=== PATIENT | female | born 1970 | race Caucasian/White ===

== ENCOUNTER 2017-10-12 18:01 | Emergency (ER) | payer OTHER ==
[~2017-10-12] VITALS: Ht 167.6 cm; Wt 100.1 kg
[~2017-10-12 18:01] MED LIST: ADAL40KI INJ; ARMOUR THYROID PO; AZIT-60 PO; B-COTAB18 PO; BUSP-8 PO; CHOL100010 PO; CYCL0.052 OPB; CYM60 PO; ESTR0.3T PO; FLV1 PO; LAMO200T35 PO; LISD70CA PO; MTH25 SQ; NSNN50; ONDA4TAB4 PO; PRM/45 PO; PROM12.57 PO; RIZA10TA18 PO; VERA180T33 PO
[2017-10-12 18:05] VITALS: TEMP 36.5; Ht 167.6 cm; Wt 100.1 kg
[2017-10-12] MEDS ORDERED: SODIUM CHLORIDE 0.9% 1000ML 1,000 ML IV STA (18:24)
--- NOTE | 2017-10-12 18:34 | EMERGENCY ROOM VISIT NOTE ---
History Report prepared by Adam: Capo Garcia Under the Supervision of: Dr. Stan Julian M.D. First contact with patient: 18:11 Chief Complaint: ILLNESS Stated Complaint: SWEATING, MUSCLE WEAKNESS, NAUSEA History of Present Illness The patient is a 47 year old female who presents to the Emergency Room with complaints of persistent diaphoresis that began around 2 months ago. Over this time, she had her Mirena IUD removed that had been in place for 5 years. She has had two menstrual cycles since with her most recent one being today. Along with this, she had began to ween off of her medications to try to live off of all medications. She has also been trying to get ride of her Thrush. The medications that were weened off include Cymbalta, Methotrexate, Humira, and Tofacitinib. She had been taking Premerin for many years, but stopped taking it two months ago. She notes that she has a history of migraines and finished a course of Prednisone 3 days ago. Her symptoms over these two months include diaphoresis, muscle weakness, generalized body pains, and nausea that have worsened in the last couple of days. She denies any fevers, chills, cough, shortness of breath, vomiting, or abnormal urinary symptoms. She also has a history of gastroparesis. She denies any history of diabetes. Source of History: patient Onset: 2 months Position: other (Global) Symptom Intensity: moderate Quality: other (Diaphoresis) Timing: worsening Associated Symptoms: + nausea, No fevers, No chills, No SOB, No vomiting, No urinary symptoms Note: She is having generalized muscle aches and weakness. Review of Systems See HPI for pertinent positives and negatives. A total of ten systems were reviewed and were otherwise negative. Past Medical & Surgical Medical Problems: (1) Anxiety (2) Cerebral aneurysm (3) Chronic Sinusitis Nos (4) Fibromyalgia (5) Migraine (6) LEXIE (obstructive sleep apnea) (7) Tricuspid Valve Disease Family History Autoimmune disorder Diabetes mellitus FH: COPD (chronic obstructive pulmonary disease) Hemiplegic migraines Social History Smoking Status: Former Smoker Drug Use: none Marital Status: Housing Status: lives with family Occupation Status: unemployed Current/Historical Medications Scheduled B-Complex Vitamins (Vitamin B Complex), 1 TAB PO QAM Cholecalciferol (D 1999), 1 TAB PO DAILY Cyclosporine (Ophth) (Restasis), 1 DROP OPB BID Duloxetine HCl (Duloxetine HCl), 90 MG PO on hold Folic Acid (Folic Acid), 1 MG PO QAM Lisdexamfetamine Dimesylate (Vyvanse), 50 MG PO QAM Methylprednisolone (Methylprednisolone), 4 MG PO DAILY Mometasone Furoate (Nasal) (Mometasone Furoate), 1 SPRAY JUDITH DAILY Propranolol HCl (Propranolol HCl ER), 60 MG PO HS Ropinirole HCl (Ropinirole HCl), 0.25 MG PO DAILY Sumatriptan Succinate (Imitrex), 100 MG PO PRN [[place] Thyroid], 60 MG PO QAM Scheduled PRN Ibuprofen-Famotidine (Duexis), 1 TAB PO TID PRN for Ondansetron (Ondansetron HCl), 4 MG PO Q6 PRN for Nausea or Vomiting [Dextroamp-Amphet], 15 MG PO DAILY PRN for Allergies Coded Allergies: Gabapentin (Verified Allergy, Intermediate, HIVES, 07/01/15) Sulfa Drugs (Verified Allergy, Unknown, 07/01/15) Physical Exam Vital Signs Date Time Temp Pulse Resp B/P (MAP) Pulse Ox O2 Delivery O2 Flow Rate FiO2 10/12/17 20:38 75 18 109/87 98 10/12/17 18:05 36.5 87 16 114/70 97 Room Air Physical Exam GENERAL: Awake, alert, anxious-appearing, in no distress HENT: Normocephalic, atraumatic. Oropharynx reveals dry mucous membranes. EYES: Normal conjunctiva. Sclera non-icteric. NECK: Supple. No nuchal rigidity. FROM. No JVD. RESPIRATORY: Clear to auscultation. CARDIAC: Regular rate, normal rhythm. Extremities warm and well perfused. Pulses equal. ABDOMEN: Soft, non-distended. No tenderness to palpation. No rebound or guarding. No masses. RECTAL: Deferred. MUSCULOSKELETAL: Chest examination reveals no tenderness. The back is symmetrical on inspection without obvious abnormality. There is no CVA tenderness to palpation. No joint edema. LOWER EXTREMITIES: Calves are equal size bilaterally and non-tender. No edema. No discoloration. NEURO: Normal sensorium. No sensory or motor deficits noted. SKIN: No rash or jaundice noted. Medical Decision & Procedures Laboratory Results 10/12/17 18:45 Red Blood Count 5.15, Mean Corpuscular Volume 92.8, Mean Corpuscular Hemoglobin 31.3, Mean Corpuscular Hemoglobin Concent 33.7, Mean Platelet Volume 11.2 10/12/17 18:45 Test 10/12/17 18:38 10/12/17 18:45 Urine Color YELLOW Urine Appearance CLOUDY (CLEAR) Urine pH 7.0 (4.5-7.5) Urine Specific [place] 1.012 (1.000-1.030) Urine Protein NEG (NEG) Urine Glucose (UA) NEG (NEG) Urine Ketones NEG (NEG) Urine Occult Blood NEG (NEG) Urine Nitrite NEG (NEG) Urine Bilirubin NEG (NEG) Urine Urobilinogen NEG (NEG) Urine Leukocyte Esterase NEG (NEG) Urine WBC (Auto) 0 /hpf (0-5) Urine RBC (Auto) 0-4 /hpf (0-4) Urine Hyaline Casts (Auto) 0 /lpf (0-5) Urine Epithelial Cells (Auto) 10-20 /lpf (0-5) Urine Bacteria (Auto) NEG (NEG) Urine Test NEG (NEG) White Blood Count 11.58 K/uL (4.8-10.8) Red Blood Count 5.15 M/uL (4.2-5.4) Hemoglobin 16.1 g/dL (12.0-16.0) Hematocrit 47.8 % (37-47) Mean Corpuscular Volume 92.8 fL (80-100) Mean Corpuscular Hemoglobin 31.3 pg (25-34) Mean Corpuscular Hemoglobin Concent 33.7 g/dl (32-36) Platelet Count 316 K/uL (130-400) Mean Platelet Volume 11.2 fL (7.4-10.4) RDW Standard Deviation 44.4 fL (36.4-46.3) RDW Coefficient of Variation 13.1 % (11.5-14.5) Nucleated RBC Absolute Count (auto) 0.02 K/uL (0-0) Neutrophils % (Manual) 61.1 % Lymphocytes % (Manual) 27.6 % Monocytes % (Manual) 5.2 % Eosinophils % (Manual) 1.7 % Basophils % (Manual) 0.9 % Metamyelocytes % 0.9 % Myelocytes % 2.6 % Nucleated Red Blood Cells % 0.2 % Neutrophils # (Manual) 7.08 K/uL (1.4-6.5) Total Absolute Neutrophils 7.08 K/uL (1.4-6.5) Lymphocytes # (Manual) 3.20 K/uL (1.2-3.4) Total Absolute Lymphocytes 3.20 K/uL (1.2-3.4) Monocytes # (Manual) 0.60 K/uL (0.11-0.59) Eosinophils # (Manual) 0.20 K/uL (0-0.5) Basophils # (Manual) 0.10 K/uL (0-0.2) Metamyelocytes # 0.10 K/uL (0-0) Myelocytes # 0.30 K/uL (0-0) Red Blood Cell Morphology Unremarkable Anion Gap 4.0 mmol/L (3-11) Est Creatinine Clear Calc Drug Dose 78.2 ml/min Estimated GFR () 72.7 Estimated GFR (Non- 62.8 BUN/Creatinine Ratio 16.4 (10-20) Calcium Level 10.0 mg/dl (8.5-10.1) Total Bilirubin 0.3 mg/dl (0.2-1) Direct Bilirubin < 0.1 mg/dl (0-0.2) Aspartate Amino Transf (AST/SGOT) 18 U/L (15-37) Alanine Aminotransferase (ALT/SGPT) 32 U/L (12-78) Alkaline Phosphatase 105 U/L (45-117) Total Protein 8.3 gm/dl (6.4-8.2) Albumin 4.3 gm/dl (3.4-5.0) Laboratory results reviewed by me Medications Administered Medications (Trade) Dose Ordered Sig/Minerva Route Start Time Stop Time Status Last Admin Dose Admin Sodium Chloride 1,000 ml @ 999 mls/hr Q1H1M STAT IV 10/12/17 18:24 10/12/17 19:24 DC 10/12/17 19:01 999 MLS/HR ED Course 1810: The patient was evaluated in room C11B. A complete history and physical exam was performed. 1943: The patient had her arm bent so she never received her fluids. 2037: I reevaluated the patient. Discussed results and discharge instructions: She verbalized understanding and agreement. The patient is ready for discharge. Medical Decision I reviewed the patient's past medical history, medications, and the nursing notes as described above. Differential diagnosis includes but is not limited to: dehydration, electrolyte abnormalities, UTI, perimenopausal, and medication withdrawal. The patient is a 47 y/o woman with pmhx of anxiety and depression, RA who presents to the emergency department with complaints of fatigue and sweats over the past month per hPI. On arrival the patient is anxious appearing but in NAD, AFVSS. Clinically dry appearing with dry MM. Sodium 133 and wbc 11 with labs otherwise unremarkable. Sx possible due to mild dehydration in the setting of recent medication changes as well as recently resume her menstrual cycle after 10+ years of having a Merena IUD. Patient has pcp appointment tomorrow. Given 1 month of sx unlikely to have emergent process at this time. Findings and plan for follow-up reviewed with patient. Patient agreeable and d/c'd per discharge instructions. Medication Reconcilliation Current Medication List: was personally reviewed by me Blood Pressure Screening Patient's blood pressure: Normal blood pressure Blood pressure disposition: Did not require urgent referral Impression Primary Impression: Dehydration Scribe Attestation The scribe's documentation has been prepared under my direction and personally reviewed by me in its entirety. I confirm that the note above accurately reflects all work, treatment, procedures, and medical decision making performed by me. Departure Information Dispostion Home / Self-Care Referrals Asif Altamirano Jr,D.O. (PCP) Forms HOME CARE DOCUMENTATION FORM, IMPORTANT VISIT INFORMATION, WORK / SCHOOL INSTRUCTIONS Patient Instructions ED Dehydration, My [facility] Additional Instructions Please follow up with your primary care physician in the next 1-3 days for re- evaluation. The cause of your symptoms are unclear at this time but may be due to mild dehydration or possibly related to being off her medications. Otherwise, your exam and lab results did not show signs of an emergent condition at this time. Drink plenty of fluids. Return to the emergency department for worsening symptoms as described in the accompanying instructions.
[2017-10-12 19:01] LABS: HEMATOCRIT 47.8 % (37-47); MEAN CELL VOLUME 92.8 fL (80-100); MEAN CORPUSCULAR HEMOGLOBIN 31.3 pg (25-34); MEAN CORPUSCULAR HGB CONC 33.7 g/dl (32-36); MEAN PLATELET VOLUME 11.2 fL (7.4-10.4); PLATELET COUNT 316 K/uL (130-400); RED BLOOD COUNT 5.15 M/uL (4.2-5.4); WHITE BLOOD COUNT 11.58 K/uL (4.8-10.8)
[2017-10-12 19:03] LABS: URINE APPEARANCE CLOUDY (CLEAR); URINE BILIRUBIN NEG (NEG); URINE COLOR YELLOW; URINE NITRITE NEG (NEG); URINE SPECIFIC GRAVITY 1.012 (1.000-1.030); UROBILINOGEN NEG (NEG); ZZUR CULT IF INDIC CLEAN CATCH NO
[2017-10-12 19:08] LABS: MANUAL MICROSCOPIC REQUIRED? NO; REVIEW REQ? NO
[2017-10-12 19:18] LABS: ALT/SGPT 32 U/L (12-78); AST/SGOT 18 U/L (15-37); BLOOD UREA NITROGEN 17 mg/dl (7-18); BUN/CREATININE RATIO 16.4 (10-20); CARBON DIOXIDE 31 mmol/L (21-32); CHLORIDE 98 mmol/L (98-107); CREATININE 1.05 mg/dl (0.60-1.20); GLUCOSE 90 mg/dl (70-99); POTASSIUM 4.1 mmol/L (3.5-5.1); SODIUM 133 mmol/L (136-145)
[2017-10-12 19:20] LABS: ALKALINE PHOSPHATASE 105 U/L (45-117)
[2017-10-12] MEDS ORDERED: RQP25 PO (19:33)
[2017-10-12] MEDS ORDERED: TOFA1TAB PO (19:33)
[2017-10-12] MEDS ORDERED: PROP60CA PO (19:33)
[2017-10-12] MEDS ORDERED: DEXTROAMP-AMPHET PO (19:33)
[2017-10-12] MEDS ORDERED: MDR4 PO (19:33)
[2017-10-12] MEDS ORDERED: LISD50CA4 PO (19:33)
[2017-10-12] MEDS ORDERED: CYM30 PO (19:33)
[2017-10-12] MEDS ORDERED: IBUP1TAB51 PO (19:33)
[2017-10-12 19:37] LABS: BASOPHIL % 0.9 %; COMPLETE YES; EOSINOPHIL % 1.7 %; LYMPHOCYTE % 27.6 %; METAMYELOCYTE % 0.9 %; MYELOCYTE % 2.6 %; NEUTROPHILS % 61.1 %
[2017-10-12] MEDS ORDERED: SUMA100T16 PO (19:45)
[2017-10-12] MEDS ORDERED: MOME6000 NAE (19:48)
[2017-10-12] MEDS ORDERED: ZFR4 PO (19:48)
[2017-10-12] MEDS ORDERED: CHOL1TAB76 PO (19:48)
[2017-10-12 20:38] VITALS: BP 109/87; PULSE 75; O2SAT 98
== END 2017-10-12 20:35 | disposition home or self-care (01) ==
LOC: C.EDB 18:02 → C.EDC 20:35
DX: E86.0 Dehydration (principal); F41.9 Anxiety disorder, unspecified; J32.9 Chronic sinusitis, unspecified; M79.7 Fibromyalgia; G43.909 Migraine, unspecified, not intractable, without status migrainosus; G47.33 Obstructive sleep apnea (adult) (pediatric); Z83.3 Family history of diabetes mellitus; Z83.6 Family history of other diseases of the respiratory system; Z87.891 Personal history of nicotine dependence; Z79.899 Other long term (current) drug therapy

== ENCOUNTER → 2018-05-26 | Outpatient (CLI) | payer OTHER ==
[~2018-05-26] MED LIST changes: -ADAL40KI INJ; -AZIT-60 PO; -BUSP-8 PO; -CHOL100010 PO; +CHOL1TAB76 PO; +CYM30 PO; -CYM60 PO; +DEXTROAMP-AMPHET PO; -ESTR0.3T PO; +IBUP1TAB51 PO; -LAMO200T35 PO; +LISD50CA4 PO; -LISD70CA PO; +MDR4 PO; +MOME6000 NAE; -MTH25 SQ; -NSNN50; -ONDA4TAB4 PO; -PRM/45 PO; -PROM12.57 PO; +PROP60CA PO; -RIZA10TA18 PO; +RQP25 PO; +SUMA100T16 PO; -VERA180T33 PO; +ZFR4 PO
--- NOTE | 2018-05-26 13:21 | DIAGNOSTIC IMAGING REPORT ---
CERVICAL SPINE MRI WITH FLEXION AND EXTENSION HISTORY: VERTIGO/headache, worsening neck pain,HX SYRINX, TECHNIQUE: A 1.5 Apple MRI of the cervical spinal performed without the use of intravenous contrast in neutral, flexion, extension positioning. Axial and sagittal T2 sequences were obtained. COMPARISON STUDY: None. FINDINGS: Straightening of the cervical spine. Alignment remains intact throughout flexion and extension. Prevertebral soft tissues and the C1-C2 interval are intact. There is a posterior fossa is unremarkable. Mild disc space narrowing at C5-C6 and C6-C7. The cervical spinal cord is normal in course, caliber, and signal intensity. C2-C3: No significant central canal or neural foraminal narrowing. C3-C4: No significant central canal or neural foraminal narrowing. C4-C5: No significant central canal or neural foraminal narrowing. C5-C6: Small broad-based posterior disc osteophyte complex resulting in slight effacement of the anterior thecal sac with minimal central canal narrowing. No neural foraminal narrowing. C6-C7: Small broad-based posterior disc osteophyte complex resulting in slight effacement of the anterior thecal sac without cord deformity. This results in minimal central canal narrowing. No significant neural foraminal narrowing. C7-T1: No significant central canal or neural foraminal narrowing. Normal CSF flow study. No evidence for Chiari malformation. IMPRESSION: 1. The alignment remains intact throughout flexion and extension. 2. Straightening of the cervical spine. 3. Mild degenerative disc disease at C5-C6 and C6-C7 as described above. 4. Normal CSF flow study. Electronically signed by: Cezar Mccoy M.D. 05/26/2018 1:20 PM Dictated Date/Time: 05/26/2018 12:57 PM
== END | disposition home or self-care (01) ==
LOC: C.MRIBC 10:53
DX: H81.49 Vertigo of central origin, unspecified ear (principal)

== ENCOUNTER 2023-03-20 21:12 | Inpatient (IN) ==
[2023-03-20] MEDS ORDERED: SODIUM CHLORIDE 0.9% 1000ML 1,000 ML IV STA (21:40)
[2023-03-20] MEDS ORDERED: ONDANSETRON INJ 2 MG/ML 2 ML VIAL IV STA (21:40)
[2023-03-20] MEDS ORDERED: MoRPHine SULFATE 4 MG/ML 1 ML CARP\\VIAL IV STA (21:40)
[2023-03-20 22:02] LABS: Basophils # (auto) 0.05 K/uL (0-0.2); Basophils % (auto) 0.5 %; Eosinophils # (auto) 0.12 K/uL (0-0.50); Eosinophils % (auto) 1.2 %; Hemoglobin 13.7 g/dl (12.0-16.0); Immature Granulocytes # (auto) 0.05 K/uL (0.01-0.20); Immature Granulocytes % (auto) 0.5 %; Lymphocytes % (auto) 25.1 %; Mean Corpuscular Hemoglobin 30.8 pg (25.0-34.0); Mean Corpuscular Hgb Conc 33.4 g/dL (32.0-36.0); Mean Corpuscular Volume 92.1 fL (80.0-100.0); Mean Platelet Volume 10.8 fL (9.4-12.4); Monocytes # (auto) 0.93 K/uL (0.11-0.59); Neutrophils % (auto) 63.7 %; Platelet Count 253 K/uL (130-400); RDW Coefficient of Variation 12.9 % (11.5-14.5); RDW Standard Deviation 43.4 fL (36.4-46.3); Red Blood Count 4.45 M/uL (4.20-5.40); White Blood Count 10.35 K/ul (4.8-10.8)
[2023-03-20 22:08] LABS: Appearance Urine Clear (Clear); Bilirubin Urine Negative (Negative); Blood Urine Negative (Negative); Color Urine Yellow; Glucose Urine UA Negative (Negative); Ketones Urine Negative (Negative); Leukocyte Esterase Urine Negative (Negative); Nitrite Urine Negative (Negative); Protein Urine Negative (Negative); Specific Gravity Urine 1.011 (1.000-1.030); Urobilinogen Urine Negative (Negative)
[2023-03-20 22:25] LABS: Albumin Globulin Ratio 1.5 (0.9-2); Albumin Level 4.3 gm/dl (3.4-5.0); BUN Creatinine Ratio 18.4 (10-20); Bilirubin,Total 0.3 mg/dl (0.2-1.0); Calcium 8.8 mg/dl (8.6-10.3); Creatinine Clr Calc Pharmacy 86.7 ml/min; Est GFR (African American) 88.2 ml/min; Est GFR (Non-African American) 76.1 ml/min; Globulin 2.8 gm/dl (2.5-4.0); Total Protein 7.1 gm/dl (6.0-8.3)
[2023-03-20 22:32] LABS: Troponin I High Sensitivity 2.8 pg/ml (0-14)
[2023-03-20 22:36] LABS: Pregnancy Test, Serum Negative (Negative)
--- NOTE | 2023-03-20 22:36 | Emergency Department Note ---
History of Present Illness General Chief complaint: Flank Pain Stated complaint: FLANK PAIN Time Seen by Provider: 03/20/23 21:30 History of Present Illness Maximum Pain Intensity: 6 This 52-year-old female presents to the ER complaining of right upper quadrant complaining of abdominal pain for the past few days steadily getting worse. Nothing makes it better. Patient denies chest pain, dyspnea, vomiting, diarrhea, flulike illness. She had endometriosis scrapings but no other abdom inal surgeries. Home Medications Medication Instructions Recorded Confirmed Type cholecalciferol (vitamin D3) 50 2,000 unit PO DAILY 08/11/18 03/20/23 History mcg (2,000 unit) tablet folic acid 1 mg tablet 1 mg PO DAILY 08/11/18 03/20/23 History thyroid (pork) 60 mg tablet 60 mg PO DAILY 08/11/18 03/20/23 History ([place] Thyroid) fremanezumab-vfrm 225 mg/1.5 mL 225 mg subcut .[id number] 02/17/21 03/20/23 Hist ory subcutaneous syringe (Ajovy Syringe) estradiol 0.05 mg-norethindrone 1 patch transdermal 2XWK 03/20/23 03/20/23 History 0.14 mg/24 hr semiwkly transderm patch (CombiPatch) lamotrigine 25 mg tablet 0 mg PO DIRECTED 03/20/23 03/20/23 History lorazepam 0.5 mg tablet 0.5 mg PO TID PRN Anxiety 03/20/23 03/20/23 History omeprazole 40 mg capsule,delayed 40 mg PO QAM 03/20/23 03/20/23 History release oxybutynin chloride 15 mg 15 mg PO QAM 03/20/23 03/20/23 History tablet,extended release 24 hr rimegepant 75 mg disintegrating 75 mg PO DIRECTED PRN Migraine 03/20/23 03/20/23 History tablet (Nurtec ODT) Headache tizanidine 4 mg tablet 4 mg PO HS 03/20/23 03/20/23 History tramadol 50 mg tablet 50 mg PO HS PRN RESTLESS LEGS 03/20/23 03/20/23 History Allergies Allergy/AdvReac Type Severity Reaction Status Date / Time amoxicillin Allergy Intermediate ITCHING Verified 03/20/23 22:41 azithromycin Allergy Intermediate itching Verified 03/20/23 22:41 [From Zithromax Z-Owen] gabapentin Allergy Intermediate HIVES Verified 03/20/23 22:41 Sulfa (Sulfonamide Allergy Intermediate Rash Verified 03/20/23 22:41 Antibiotics) Past Med/Surg History Medical History Anxiety Cerebral aneurysm Cervical facet joint syndrome Cervicalgia Chronic left shoulder pain Diffuse myofascial pain syndrome Fibromyalgia Migraine Myofascial pain LEXIE (obstructive sleep apnea) Social History Smoking Status: Former smoker Hx Alcohol Use: No Hx Substance Use: No Preferred Language: [place] Communication Ability: Effective Visual Impairment: No Limitations Hearing Ability: Normal Airport Tower Controller Required: No Beliefs That Will Affect Care: None marital status: Current Living Situation: Spouse current occupational status: retired Feels Safe at Home: Yes Assistive Devices: None Review of Systems A total of 10 systems reviewed and were otherwise negative Physical Exam Vital Signs Vital Signs - 24 hr 03/20/23 21:24 03/20/23 21:55 03/20/23 22:48 Temperature 37 C Temperature Source Temporal Artery Scan Pulse Rate 88 Pulse Rate [Apical] 86 Respiratory Rate 20 18 Respiratory Effort / Characteristics Non-Labored Spontaneous Respiratory Depth Normal Blood Pressure 138/81 Blood Pressure [Left Arm] 126/73 Blood Pressure Mean 100 Blood Pressure Mean [Left Arm] 90 Pulse Oximetry 96 100 96 Oxygen Delivery Method Room Air Room Air Room Air Sepsis Recent Fever Within 48 Hours No Sepsis New/Unexplained Change in Mental Status N/A Sepsis Action Taken by Nursing No Action Required VITALS: Vitals are noted on the nurse's note and reviewed by myself. Vital signs stable. GENERAL: Pleasant female, in no acute distress, nondiaphoretic, well-developed well-nourished. SKIN: The skin was without rashes, erythema, edema, or bruising. There is no tenting of the skin. Capillary reflex less than 2 seconds. HEAD: Normocephalic atraumatic. EARS: External auditory canals clear, EYES: Pupils equal round and reactive to light and accommodation. Conjunctivae without injection, sclerae without icterus. Extraocular movements intact. NOSE: Patent, turbinates without inflammation or discharge. MOUTH: Mucous membranes moist. Pharynx without erythema or exudate. Uvula midline. Airway patent. Tongue does not deviate. NECK: Supple without nuchal rigidity. No lymphadenopathy. No thyromegaly. Cervical spine is nontender. No JVD. HEART: Regular rate and rhythm LUNGS: Clear to auscultation bilaterally without wheezes, rales or rhonchi. No retractions or accessory muscle use. ABDOMEN: Positive bowel sounds x 4. Normal tympanic percussion. Soft, tender right upper quadrant, without masses or organomegaly. No guarding or rebound tenderness. No CVA tenderness MUSCULOSKELETAL: No muscle atrophy, erythema, or edema noted. NEURO: Patient was alert and oriented to person place and time. Normal sensation to light and sharp touch. No focal neurological deficits. Course Administered Medications Dextrose/Lactated Ringer's (D5w And Lactated Ringers) 1,000 mls @ 75 mls/hr IV .[id number] ONE Stop: 03/21/23 13:00 Last Admin: 03/21/23 00:42 Dose: 75 mls/hr Documented By: ADAM Discontinued Medications Sodium Chloride (Nss 1000ml) 1,000 mls @ 999 mls/hr IV .[id number] STA Stop: 03/20/23 22:40 Last Infusion: 03/20/23 22:46 Dose: 0 mls/hr Documented By: Admin: 03/20/23 21:45 Dose: 999 mls/hr Documented By: LOIS Cefoxitin Sodium (Mefoxin) 2,000 mg in 60 mls @ 100 mls/hr IV NOW STA Stop: 03/20/23 23:37 Last Infusion: 03/21/23 00:25 Dose: 0 mls/hr Documented By: Admin: 03/20/23 23:49 Dose: 100 mls/hr Documented By: ADAM Acetaminophen (Ofirmev) 1,000 mg in 100 mls @ 400 mls/hr IV NOW STA Stop: 03/20/23 23:23 Last Infusion: 03/20/23 23:29 Dose: 0 mls/hr Documented By: Admin: 03/20/23 23:14 Dose: 400 mls/hr Documented By: ADAM Ketorolac Tromethamine (Ketorolac Tromethamine 15 Mg/Ml Vial) 15 mg IV NOW ONE Stop: 03/20/23 23:58 Last Admin: 03/21/23 00:03 Dose: 15 mg Documented By: ADAM Morphine Sulfate (Morphine Sulfate 4 Mg/Ml 1 Ml Carp\Vial) 4 mg IV NOW STA Stop: 03/20/23 21:41 Last Admin: 03/20/23 21:45 Dose: 4 mg Documented By: Ondansetron HCl (Ondansetron Inj 2 Mg/Ml 2 Ml Vial) 4 mg IV NOW STA Stop: 03/20/23 21:41 Last Admin: 03/20/23 21:45 Dose: 4 mg Documented By: Medical Decision Making Medical Records Attestation: I reviewed the patient's medical records. Home Medications Current Medication List: was personally reviewed by me Laboratory Data Attestation: I reviewed the patient's lab results. 03/20/23 21:47 03/20/23 21:47 Lab Results 03/20/23 03/20/23 03/20/23 Range/Units 21:40 21:47 21:47 WBC 10.35 (4.8-10.8) K/ul RBC 4.45 (4.20-5.40) M/uL Hgb 13.7 (12.0-16.0) g/dl Hct 41.0 (37.0-47.0) % MCV 92.1 (80.0-100.0) fL MCH 30.8 (25.0-34.0) pg MCHC 33.4 (32.0-36.0) g/dL RDW Std Deviation 43.4 (36.4-46.3) fL RDW Coeff of Eunice 12.9 (11.5-14.5) % Plt Count 253 (130-400) K/uL MPV 10.8 (9.4-12.4) fL Immature Gran % (Auto) 0.5 % Neut % (Auto) 63.7 % Lymph % (Auto) 25.1 % [place] % (Auto) 9.0 % Eos % (Auto) 1.2 % Baso % (Auto) 0.5 % Neut # (Auto) 6.60 H (1.40-6.50) K/uL Lymph # (Auto) 2.60 (1.2-3.4) K/uL [place] # (Auto) 0.93 H (0.11-0.59) K/uL Eos # (Auto) 0.12 (0-0.50) K/uL Baso # (Auto) 0.05 (0-0.2) K/uL Immature Gran # (Auto) 0.05 (0.01-0.20) K/uL Sodium 138 (136-145) mmol/L Potassium 4.0 (3.5-5.1) mmol/L Chloride 102 (98-107) mmol/L Carbon Dioxide 28 (21-32) mmol/L Anion Gap 8 (3-11) BUN 16 (6-23) mg/dl Creatinine 0.87 (0.6-1.2) mg/dl Est Cr Clr Drug Dosing 86.7 ml/min Est GFR ( Amer) 88.2 ml/min Est GFR (Non-Af Amer) 76.1 ml/min BUN/Creatinine Ratio 18.4 (10-20) Glucose 91 (70-99(Fasting)) mg/dl Calcium 8.8 (8.6-10.3) mg/dl Total Bilirubin 0.3 (0.2-1.0) mg/dl AST 14 (13-39) U/L ALT 9 (7-52) U/L Alkaline Phosphatase 65 (34-104) U/L Troponin I High Sens 2.8 (0-14) pg/ml Total Protein 7.1 (6.0-8.3) gm/dl Albumin 4.3 (3.4-5.0) gm/dl Globulin 2.8 (2.5-4.0) gm/dl Albumin/Globulin Ratio 1.5 (0.9-2) Lipase 40 (11-82) U/L HCG, Qual (Negative) Urine Color Yellow Urine Appearance Clear (Clear) Urine pH 7.0 (4.5-7.5) Ur Specific [place] 1.011 (1.000-1.030) Urine Protein Negative (Negative) Urine Glucose (UA) Negative (Negative) Urine Ketones Negative (Negative) Urine Blood Negative (Negative) Urine Nitrite Negative (Negative) Urine Bilirubin Negative (Negative) Urine Urobilinogen Negative (Negative) Ur Leukocyte Esterase Negative (Negative) SARS-CoV-2, RNA, NAAT (NEGATIVE) 03/20/23 03/20/23 Range/Units 21:47 23:09 WBC (4.8-10.8) K/ul RBC (4.20-5.40) M/uL Hgb (12.0-16.0) g/dl Hct (37.0-47.0) % MCV (80.0-100.0) fL MCH (25.0-34.0) pg MCHC (32.0-36.0) g/dL RDW Std Deviation (36.4-46.3) fL RDW Coeff of Eunice (11.5-14.5) % Plt Count (130-400) K/uL MPV (9.4-12.4) fL Immature Gran % (Auto) % Neut % (Auto) % Lymph % (Auto) % [place] % (Auto) % Eos % (Auto) % Baso % (Auto) % Neut # (Auto) (1.40-6.50) K/uL Lymph # (Auto) (1.2-3.4) K/uL [place] # (Auto) (0.11-0.59) K/uL Eos # (Auto) (0-0.50) K/uL Baso # (Auto) (0-0.2) K/uL Immature Gran # (Auto) (0.01-0.20) K/uL Sodium (136-145) mmol/L Potassium (3.5-5.1) mmol/L Chloride (98-107) mmol/L Carbon Dioxide (21-32) mmol/L Anion Gap (3-11) BUN (6-23) mg/dl Creatinine (0.6-1.2) mg/dl Est Cr Clr Drug Dosing ml/min Est GFR ( Amer) ml/min Est GFR (Non-Af Amer) ml/min BUN/Creatinine Ratio (10-20) Glucose (70-99(Fasting)) mg/dl Calcium (8.6-10.3) mg/dl Total Bilirubin (0.2-1.0) mg/dl AST (13-39) U/L ALT (7-52) U/L Alkaline Phosphatase (34-104) U/L Troponin I High Sens (0-14) pg/ml Total Protein (6.0-8.3) gm/dl Albumin (3.4-5.0) gm/dl Globulin (2.5-4.0) gm/dl Albumin/Globulin Ratio (0.9-2) Lipase (11-82) U/L HCG, Qual Negative (Negative) Urine Color Urine Appearance (Clear) Urine pH (4.5-7.5) Ur Specific [place] (1.000-1.030) Urine Protein (Negative) Urine Glucose (UA) (Negative) Urine Ketones (Negative) Urine Blood (Negative) Urine Nitrite (Negative) Urine Bilirubin (Negative) Urine Urobilinogen (Negative) Ur Leukocyte Esterase (Negative) SARS-CoV-2, RNA, NAAT NEGATIVE (NEGATIVE) Imaging Data Attestation: I personally reviewed and interpreted this imaging study as follows: Radiologist's Impression: Gallbladder Ultrasound 03/20/23 21:40 Exam(s): US GALLBLADDER EXAM: US Abdomen Limited, Gallbladder CLINICAL HISTORY: Reason for exam: ruq pain. TECHNIQUE: Real-time ultrasound of the right upper quadrant with image documentation. COMPARISON: 09/29/2018. FINDINGS: Limitations: Exam is limited due to gas artifact in the bowel. Liver: The liver measures 16.5 cm. Gallbladder: Ruiz sign could not be assessed due to prior administration of medication. The gallbladder wall measures 1.9 mm. Normal distention of the gallbladder with a stone measuring 1.5 x 1.7 x 1. 4 cm. Common bile duct: The common bile duct measures 3 mm. No stones. No dilation. Pancreas: Unremarkable as visualized. Right kidney: The right kidney measures 11.5 cm. IMPRESSION: 1. Gallstone measuring maximum 1.7 cm with no distinct signs of acute cholecystitis. 2. Remainder of the right upper quadrant ultrasound unremarkable. Electronically signed by: Sara Marsh MD 03/20/23 22:52 PM [facility] Narrative Prior records/ancillary studies reviewed. Triage Nursing notes reviewed. Additional history obtained from family. The patient's history was concerning for abdominal pain. Differential diagnosis: Etiologies such as appendicitis, diverticulitis, PUD, biliary pathology, UTI, pancreatitis, obstruction, mesenteric ischemia, aortic pathology, infections, inflammatory bowel disease, renal colic, as well as others were entertained. Physical examination findings: As above. ER treatment provided: An order was placed for continuous cardiac monitoring. The monitor shows a rate of 60-100 with a sinus rhythm per my Independent interpretation. Morphine Zofran IV fluids were ordered On reassessment the patient felt better. Diagnostics interpreted by me: ECG: Ordered for upper abdominal pain EKG: Normal sinus, normal intervals, no acute ST-T wave changes. Impression normal sinus rhythm independently interpreted by myself I think arrhythmia is unlikely. EKG shows normal sinus rhythm with no interval abnormalities such as QT prolongation or WPW. There are no findings to suggest Brugada syndrome. Cardiac monitoring in the emergency department reveals no tachycardic or bradycardic dysrhythmia. Hypertrophic cardiomyopathy was considered but there are no clear historical elements pointing toward this. EKG is not suggestive. The QRS voltage is not extremely large and there are no suggestive Q waves. The labs Independently Interpreted by myself revealed normal lipase, no worrisome leukocytosis, negative hCG Imaging studies: Ultrasound was read by stat radiology and reviewed by myself with concerns for cholelithiasis Consultation: A consultation was placed with the surgery. The case was discussed and diagnostics were reviewed. Dr. Stock recommends HIDA scan antibiotics and medicine admission Medicine was consulted and will evaluate the patient for possible admission. Exam and history seem consistent with abdominal pain with concerns for biliary colic. Patient was still moderate amount of pain. Surgery medicine were consulted. The case was discussed. Patient will be admitted to the medical service. HIDA scan was ordered. Patient started antibiotics. She was given pain meds as above. By the evaluation outlined above emergent etiologies such as appendicitis, diverticulitis, PUD, UTI, pancreatitis, obstruction, mesenteric ischemia, aortic pathology, inflammatory bowel disease, renal colic, as well as others were deemed relatively unlikely. The pt informed about the findings as listed above. All questions were answered and pleased with the treatment. The chart was completed utilizing [employer] Speech voice recognition software. Grammatical errors, random word insertions, pronoun errors, and incomplete sentences are an occassional consequence of this system due to software limitations, ambient noise, and hardware issues. Any formal questions or concerns about the content, text, or information contained within the body of this dictation should be directly addressed to the physician assistant store manager trainee for clarification. Impression & Plan Biliary colic, Abdominal pain, acute Discharge Plan Visit Data Chief Complaint: Flank Pain Stated Complaint: FLANK PAIN ED Provider: Олег Gambino ED Midlevel Provider: Evonne Cruz Discharge Problem: Biliary colic, Abdominal pain, acute Patient Disposition: Admitted As Inpatient Condition: Good Forms Stand Alone Forms: [employer] Prescriptions Prescriptions: No Action Ajovy Syringe 225 mg/1.5 mL syringe 225 mg subcut .[id number] Rx Instructions: DUE IN MARCH 2023 folic acid 1 mg Tablet 1 mg PO DAILY cholecalciferol (vitamin D3) 2,000 unit Tablet 2,000 unit PO DAILY [place] Thyroid 60 mg Tablet 60 mg PO DAILY oxybutynin chloride 15 mg tablet extended release 24hr 15 mg PO QAM tizanidine 4 mg tablet 4 mg PO HS Rx Instructions: MAY INCREASE WEEKLY BY 2 MG IF NEEDED TO MAX DOSE OF 8 MG. omeprazole 40 mg capsule,delayed release(DR/EC) 40 mg PO QAM tramadol 50 mg tablet 50 mg PO HS PRN (Reason: RESTLESS LEGS) lamotrigine 25 mg tablet 0 mg PO DIRECTED lorazepam 0.5 mg tablet 0.5 mg PO TID PRN (Reason: Anxiety) CombiPatch 0.05-0.14 mg/24 hr patch semiweekly 1 patch transdermal 2XWK Nurtec ODT 75 mg tablet,disintegrating 75 mg PO DIRECTED PRN (Reason: Migraine Headache) Referrals Referrals: Belle Parekh MD [Primary Care Provider] -
--- NOTE | 2023-03-20 22:53 | Ultrasound Report ---
Exam(s): US GALLBLADDER EXAM: US Abdomen Limited, Gallbladder CLINICAL HISTORY: Reason for exam: ruq pain. TECHNIQUE: Real-time ultrasound of the right upper quadrant with image documentation. COMPARISON: 09/29/2018. FINDINGS: Limitations: Exam is limited due to gas artifact in the bowel. Liver: The liver measures 16.5 cm. Gallbladder: Ruiz sign could not be assessed due to prior administration of medication. The gallbladder wall measures 1.9 mm. Normal distention of the gallbladder with a stone measuring 1.5 x 1.7 x 1. 4 cm. Common bile duct: The common bile duct measures 3 mm. No stones. No dilation. Pancreas: Unremarkable as visualized. Right kidney: The right kidney measures 11.5 cm. IMPRESSION: 1. Gallstone measuring maximum 1.7 cm with no distinct signs of acute cholecystitis. 2. Remainder of the right upper quadrant ultrasound unremarkable. Electronically signed by: Sara Marsh MD 03/20/23 22:52 PM
[2023-03-20] MEDS ORDERED: cefOXitin 2,000 MG/60 ML BAG IV STA (23:02)
[2023-03-20] MEDS ORDERED: ACETAMINOPHEN 1,000 MG/100 ML VIAL IV STA (23:09)
[2023-03-20] MEDS ORDERED: oxyCODONE HCL IR 5 MG TAB (IMMEDIATE RELEASE) PO PRN (23:41)
[2023-03-20] MEDS ORDERED: D5W AND LACTATED RINGERS 1,000 ML IV ONE (23:41)
[2023-03-20] MEDS ORDERED: ACETAMINOPHEN 325 MG TAB PO PRN (23:41)
[2023-03-20] MEDS ORDERED: KETOROLAC TROMETHAMINE 15 MG/ML VIAL IV ONE (23:57)
--- NOTE | 2023-03-21 02:03 | History & Physical Report ---
Date of Service March 21, 2023 Assessment & Plan (1) Biliary colic: Plan: no sepsis for now. hyperlipidemia, not on statin Rx LEXIE status post surgery DM 2 diet controlled, hemoglobin A1c of 5.27 September 2022 hypothyroidism, euthyroid as of recent outpatient TSH hx fibromyalgia/migraine/chronic fatigue syndrome as per records anxiety/mood disorder, at baseline past tobacco abuse. OBS GMF Analgesia General surgery consult Re: Biliary colic (ER provider already in touch with Dr. Stock who recommends HIDA scan to rule out cholecystitis.) N.p.o. until patient seen by General Surgery ISS BG goal 1 10-1 40, update hemoglobin A1c DVT Prophylaxis. SCDs Re: Possible surgery Recommend pharmacologic anticoagulation with Lovenox 40 mg subcutaneous daily once bleeding risk is deemed to be minimal and negligible pending General Surgery evaluation. Full code Patient requesting updates from providers. Mr. Geri Siddiqui, contact #[phone]. Text document was generated using [employer] voice recognition software. It may contain grammatical or spelling errors. Kindly contact undersigned for clarification of any documentation item in question. History of Present Illness Chief Complaint: Abdominal pain Primary Care Provider: Belle Parekh MD History obtained from patient, family, and records. Medical history significant for hyperlipidemia, LEXIE status post surgery, DM 2 diet controlled, hypothyroidism, GERD, fibromyalgia, migraine, chronic fatigue syndrome as per records, anxiety/mood disorder, IgA deficiency as per records, past tobacco abuse. Last confinement December 2014 for intractable headache. Few days history of achy RUQ pain radiating to the right flank with nausea, no vomiting, no fever, no chills. Patient denies chest pain, SOB. Patient brought by to the ER for evaluation. Medical History as above Surgical History : Tarsal tunnel release surgery, uvulopalatopharyngoplasty, breast reduction, sinus surgery, entropion surgery, oophorectomy, hernia repair Family History : Cholelithiasis, breast cancer, DM, autoimmune disease Personal/Social history : Past tobacco abuse, occasional EtOH intake, homemaker Allergies Allergy/AdvReac Type Severity Reaction Status Date / Time amoxicillin Allergy Intermediate ITCHING Verified 03/20/23 22:41 azithromycin Allergy Intermediate itching Verified 03/20/23 22:41 [From Zithromax Z-Owen] gabapentin Allergy Intermediate HIVES Verified 03/20/23 22:41 Sulfa (Sulfonamide Allergy Intermediate Rash Verified 03/20/23 22:41 Antibiotics) Home Medications Medication Instructions Recorded Confirmed Type cholecalciferol (vitamin D3) 50 2,000 unit PO DAILY 08/11/18 03/20/23 History mcg (2,000 unit) tablet folic acid 1 mg tablet 1 mg PO DAILY 08/11/18 03/20/23 History thyroid (pork) 60 mg tablet 60 mg PO DAILY 08/11/18 03/20/23 History ([place] Thyroid) fremanezumab-vfrm 225 mg/1.5 mL 225 mg subcut .[id number] 02/17/21 03/20/23 History subcutaneous syringe (Ajovy Syringe) estradiol 0.05 mg-norethindrone 1 patch transdermal 2XWK 03/20/23 03/20/23 History 0.14 mg/24 hr semiwkly transderm patch (CombiPatch) lamotrigine 25 mg tablet 0 mg PO DIRECTED 03/20/23 03/20/23 History lorazepam 0.5 mg tablet 0.5 mg PO TID PRN Anxiety 03/20/23 03/20/23 History omeprazole 40 mg capsule,delayed 40 mg PO QAM 03/20/23 03/20/23 History release oxybutynin chloride 15 mg 15 mg PO QAM 03/20/23 03/20/23 History tablet,extended release 24 hr rimegepant 75 mg disintegrating 75 mg PO DIRECTED PRN Migraine 03/20/23 03/20/23 History tablet (Nurtec ODT) Headache tizanidine 4 mg tablet 4 mg PO HS 03/20/23 03/20/23 History tramadol 50 mg tablet 50 mg PO HS PRN RESTLESS LEGS 03/20/23 03/20/23 History Past Med/Surg History Medical History Anxiety Cerebral aneurysm Cervical facet joint syndrome Cervicalgia Chronic left shoulder pain Diffuse myofascial pain syndrome Fibromyalgia Migraine Myofascial pain LEXIE (obstructive sleep apnea) Social History Smoking Status: Never smoker Second Hand Exposure: No; Do You Dip or Chew Tobacco: No; Hx Alcohol Use: Yes Alcohol type: beer and hard liquor Hx Substance Use: No Preferred Language: Bel[place]an Communication Ability: Effective Visual Impairment: No Limitations Hearing Ability: Normal 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 Beliefs That Will Affect Care: None marital status: Current Living Situation: Spouse current occupational status: retired Feels Safe at Home: Yes Safety Concerns: Feels Safe At This Time Assistive Devices: None Review of Systems Review of Systems: As per HPI, all other systems reviewed and negative Physical Exam Physical Exam: GENERAL: Comfortable, pleasant, obese, no respiratory distress SKIN: Normal color, warm HEENT: [place] palpebral conjunctivae, no ptosis, dry buccal mucosa NECK : Supple, short neck, no tenderness CHEST : CTA, no tenderness HEART : RRR, no obvious murmurs ABDOMEN: Some distention, right upper quadrant tenderness EXTREMITIES : Minimal LE swelling, no LE tenderness, no other conspicuous deformities noted NEUROLOGIC : Coherent, no facial asymmetry, no other gross focality Results & Data Results & Data Vital Signs (Past 12 Hours) Vital Signs Temp Pulse Pulse Resp BP BP Pulse Ox 03/21/23 01:23 79 16 124/80 97 03/21/23 00:20 80 03/20/23 22:48 86 18 126/73 96 03/20/23 21:55 100 03/20/23 21:24 37 C 88 20 138/81 96 O2 Del Method 03/21/23 01:23 Room Air 03/21/23 00:20 03/20/23 22:48 Room Air 03/20/23 21:55 Room Air 03/20/23 21:24 Room Air Laboratory Results Laboratory Results WBC 10.35 K/ul (4.8-10.8) 03/20/23 21:47 RBC 4.45 M/uL (4.20-5.40) 03/20/23 21:47 Hgb 13.7 g/dl (12.0-16.0) 03/20/23 21:47 Hct 41.0 % (37.0-47.0) 03/20/23 21:47 MCV 92.1 fL (80.0-100.0) 03/20/23 21:47 MCH 30.8 pg (25.0-34.0) 03/20/23 21:47 MCHC 33.4 g/dL (32.0-36.0) 03/20/23 21:47 RDW Std Deviation 43.4 fL (36.4-46.3) 03/20/23 21:47 RDW Coeff of Eunice 12.9 % (11.5-14.5) 03/20/23 21:47 Plt Count 253 K/uL (130-400) 03/20/23 21:47 MPV 10.8 fL (9.4-12.4) 03/20/23 21:47 Immature Gran % (Auto) 0.5 % 03/20/23 21:47 Neut % (Auto) 63.7 % 03/20/23 21:47 Lymph % (Auto) 25.1 % 03/20/23 21:47 [place] % (Auto) 9.0 % 03/20/23 21:47 Eos % (Auto) 1.2 % 03/20/23 21:47 Baso % (Auto) 0.5 % 03/20/23 21:47 Neut # (Auto) 6.60 K/uL (1.40-6.50) H 03/20/23 21:47 Lymph # (Auto) 2.60 K/uL (1.2-3.4) 03/20/23 21:47 [place] # (Auto) 0.93 K/uL (0.11-0.59) H 03/20/23 21:47 Eos # (Auto) 0.12 K/uL (0-0.50) 03/20/23 21:47 Baso # (Auto) 0.05 K/uL (0-0.2) 03/20/23 21:47 Immature Gran # (Auto) 0.05 K/uL (0.01-0.20) 03/20/23 21:47 Sodium 138 mmol/L (136-145) 03/20/23 21:47 Potassium 4.0 mmol/L (3.5-5.1) 03/20/23 21:47 Chloride 102 mmol/L (98-107) 03/20/23 21:47 Carbon Dioxide 28 mmol/L (21-32) 03/20/23 21:47 Anion Gap 8 (3-11) 03/20/23 21:47 BUN 16 mg/dl (6-23) 03/20/23 21:47 Creatinine 0.87 mg/dl (0.6-1.2) 03/20/23 21:47 Est Cr Clr Drug Dosing 86.7 ml/min 03/20/23 21:47 Est GFR ( Amer) 88.2 ml/min 03/20/23 21:47 Est GFR (Non-Af Amer) 76.1 ml/min 03/20/23 21:47 BUN/Creatinine Ratio 18.4 (10-20) 03/20/23 21:47 Glucose 91 mg/dl (70-99(Fasting)) 03/20/23 21:47 Calcium 8.8 mg/dl (8.6-10.3) 03/20/23 21:47 Total Bilirubin 0.3 mg/dl (0.2-1.0) 03/20/23 21:47 AST 14 U/L (13-39) 03/20/23 21:47 ALT 9 U/L (7-52) 03/20/23 21:47 Alkaline Phosphatase 65 U/L (34-104) 03/20/23 21:47 Troponin I High Sens 2.8 pg/ml (0-14) 03/20/23 21:47 Total Protein 7.1 gm/dl (6.0-8.3) 03/20/23 21:47 Albumin 4.3 gm/dl (3.4-5.0) 03/20/23 21:47 Globulin 2.8 gm/dl (2.5-4.0) 03/20/23 21:47 Albumin/Globulin Ratio 1.5 (0.9-2) 03/20/23 21:47 Lipase 40 U/L (11-82) 03/20/23 21:47 HCG, Qual Negative (Negative) 03/20/23 21:47 Urine Color Yellow 03/20/23 21:40 Urine Appearance Clear (Clear) 03/20/23 21:40 Urine pH 7.0 (4.5-7.5) 03/20/23 21:40 Ur Specific [facility] 1.011 (1.000-1.030) 03/20/23 21:40 Urine Protein Negative (Negative) 03/20/23 21:40 Urine Glucose (UA) Negative (Negative) 03/20/23 21:40 Urine Ketones Negative (Negative) 03/20/23 21:40 Urine Blood Negative (Negative) 03/20/23 21:40 Urine Nitrite Negative (Negative) 05/28/23 21:40 Urine Bilirubin Negative (Negative) 03/20/23 21:40 Urine Urobilinogen Negative (Negative) 03/20/23 21:40 Ur Leukocyte Esterase Negative (Negative) 03/20/23 21:40 SARS-CoV-2, RNA, NAAT NEGATIVE (NEGATIVE) 03/20/23 23:09 Impressions Gallbladder Ultrasound 03/20/23 21:40 Exam(s): US GALLBLADDER EXAM: US Abdomen Limited, Gallbladder CLINICAL HISTORY: Reason for exam: ruq pain. TECHNIQUE: Real-time ultrasound of the right upper quadrant with image documentation. COMPARISON: 09/29/2018. FINDINGS: Limitations: Exam is limited due to gas artifact in the bowel. Liver: The liver measures 16.5 cm. Gallbladder: Ruiz sign could not be assessed due to prior administration of medication. The gallbladder wall measures 1.9 mm. Normal distention of the gallbladder with a stone measuring 1.5 x 1.7 x 1. 4 cm. Common bile duct: The common bile duct measures 3 mm. No stones. No dilation. Pancreas: Unremarkable as visualized. Right kidney: The right kidney measures 11.5 cm. IMPRESSION: 1. Gallstone measuring maximum 1.7 cm with no distinct signs of acute cholecystitis. 2. Remainder of the right upper quadrant ultrasound unremarkable. Electronically signed by: Sara Marsh MD 03/20/23 22:52 PM Diagnostic Findings EKG as per my interpretation : Rate 80, NSR, normal axis, no ischemia
[2023-03-21] MEDS ORDERED: PROMETHAZINE 12.5 MG/50.5 ML NSS IV ONE (03:10)
[2023-03-21] MEDS: traMADol HCL 50 MG TABLET PO PRN ×2 (03:14→09:28)
[2023-03-21] MEDS: PROMETHAZINE HCL 12.5 MG in SODIUM CHLORIDE 0.9% 50 ML IV PRN ×2 (03:17→20:48)
[2023-03-21] MEDS ORDERED: LORazepam 0.5 MG TAB PO PRN (03:32)
[2023-03-21 06:20] LABS: Basophils # (auto) 0.05 K/uL (0-0.2); Basophils % (auto) 0.5 %; Eosinophils # (auto) 0.15 K/uL (0-0.50); Eosinophils % (auto) 1.6 %; Hematocrit (blood only) 39.2 % (37.0-47.0); Hemoglobin 12.8 g/dl (12.0-16.0); Immature Granulocytes # (auto) 0.13 K/uL (0.01-0.20); Immature Granulocytes % (auto) 1.4 %; Lymphocytes # (auto) 2.48 K/uL (1.2-3.4); Lymphocytes % (auto) 26.4 %; Mean Corpuscular Hemoglobin 30.4 pg (25.0-34.0); Mean Corpuscular Hgb Conc 32.7 g/dL (32.0-36.0); Mean Corpuscular Volume 93.1 fL (80.0-100.0); Mean Platelet Volume 10.9 fL (9.4-12.4); Monocytes % (auto) 8.5 %; Neutrophils % (auto) 61.6 %; Platelet Count 233 K/uL (130-400); RDW Coefficient of Variation 12.8 % (11.5-14.5); RDW Standard Deviation 44.1 fL (36.4-46.3); Red Blood Count 4.21 M/uL (4.20-5.40); White Blood Count 9.41 K/ul (4.8-10.8)
[2023-03-21 06:42] LABS: Albumin Globulin Ratio 1.5 (0.9-2); Albumin Level 3.8 gm/dl (3.4-5.0); BUN Creatinine Ratio 16.3 (10-20); Bilirubin,Total 0.2 mg/dl (0.2-1.0); Calcium 8.6 mg/dl (8.6-10.3); Est GFR (African American) 97.6 ml/min; Est GFR (Non-African American) 84.2 ml/min; Globulin 2.5 gm/dl (2.5-4.0); Potassium 4.2 mmol/L (3.5-5.1); Total Protein 6.3 gm/dl (6.0-8.3)
--- NOTE | 2023-03-21 07:07 | Surgery Consultation ---
Date of Consultation March 21, 2023 Assessment & Plan (1) Biliary colic: assessment: pt is a 52 year-old female who presents with 3 days history RUQ pain, with nausea, no vomiting, U/S show- large gallstone, possible at gallbladder neck. CBC, LFT's normal. Plan: based on H/P, labs, U/S study - large gallstone at gallbladder neck, I recommend to do laparoscopic cholecystectomy, possible open or cholangiogram tomorrow. discussed with pt about benefits, risks and alternatives of the surgery, the n risks - may include but not limit such as bleeding, infection, injury CBD, injury other organs, bile leak, incisional hernia, pt understood, she agreed with surgery, she signed informed consent, I answered all questions, cancel HIDA scan, NPO after midnight. repeat labs in morning. (2) Cholelithiasis and cholecystitis without obstruction: see above History of Present Illness Reason for Consultation: biliary colic, gallstone Requesting Physician: Mati Chandler Attending Physician: Sai Barnard MD History of Present Illness CC: RUQ pain HPI: pt is a 52 year-old female who with PMH- cerebral aneurysm( pt said very small for a few years), anxiety, gait disturbance, migraine,Fibromyalgia. pt was admitted to hospital for 3 days history RUQ pain, with nausea, no vomiting. the pain was 6/10, sharp and not radiate to back. nothing make the pain better, pt said she feels better now, less abdominal pain, pt denies chest pain, no diarrhea, no fever. pt had U/S study- large gallstone . size about 1.7cm, normal CBC, LFT's. Allergies Allergy/AdvReac Type Severity Reaction Status Date / Time amoxicillin Allergy Intermediate ITCHING Verified 03/20/23 22:41 azithromycin Allergy Intermediate itching Verified 03/20/23 22:41 [From Zithromax Z-Owen] gabapentin Allergy Intermediate HIVES Verified 03/20/23 22:41 Sulfa (Sulfonamide Allergy Intermediate Rash Verified 03/20/23 22:41 Antibiotics) Home Medications Medication Instructions Recorded Confirmed Type cholecalciferol (vitamin D3) 50 2,000 unit PO DAILY 08/11/18 03/20/23 History mcg (2,000 unit) tablet folic acid 1 mg tablet 1 mg PO DAILY 08/11/18 03/20/23 History thyroid (pork) 60 mg tablet 60 mg PO DAILY 08/11/18 03/20/23 History ([place] Thyroid) fremanezumab-vfrm 225 mg/1.5 mL 225 mg subcut .[id number] 02/17/21 03/20/23 Histo ry subcutaneous syringe (Ajovy Syringe) estradiol 0.05 mg-norethindrone 1 patch transdermal 2XWK 03/20/23 03/20/23 History 0.14 mg/24 hr semiwkly transderm patch (CombiPatch) lamotrigine 25 mg tablet 0 mg PO DIRECTED 03/20/23 03/20/23 History lorazepam 0.5 mg tablet 0.5 mg PO TID PRN Anxiety 03/20/23 03/20/23 History omeprazole 40 mg capsule,delayed 40 mg PO QAM 03/20/23 03/20/23 History release oxybutynin chloride 15 mg 15 mg PO QAM 03/20/23 03/20/23 History tablet,extended release 24 hr rimegepant 75 mg disintegrating 75 mg PO DIRECTED PRN Migraine 03/20/23 03/20/23 History tablet (Nurtec ODT) Headache tizanidine 4 mg tablet 4 mg PO HS 03/20/23 03/20/23 History tramadol 50 mg tablet 50 mg PO HS PRN RESTLESS LEGS 03/20/23 03/20/23 History Patient History Medical History Anxiety Cerebral aneurysm Cervical facet joint syndrome Cervicalgia Chronic left shoulder pain Diffuse myofascial pain syndrome Fibromyalgia Migraine Myofascial pain LEXIE (obstructive sleep apnea) Social History Smoking Status: Never smoker Second Hand Exposure: No; Do You Dip or Chew Tobacco: No; Hx Alcohol Use: Yes Alcohol type: beer and hard liquor Hx Substance Use: No Preferred Language: Polish Communication Ability: Effective Visual Impairment: No Limitations Hearing Ability: Normal Vocational Rehab Consultant Required: No Beliefs That Will Affect Care: None marital status: Current Living Situation: Spouse current occupational status: retired Feels Safe at Home: Yes Safety Concerns: Feels Safe At This Time Assistive Devices: None Review of Systems Constitutional: as per Subjective / HPI no distress Respiratory: as per Subjective / HPI Cardiovascular: as per Subjective / HPI Gastrointestinal: as per Subjective / HPI (abdominal pain, dysphagia) Genitourinary: as per Subjective / HPI Musculoskeletal: left shoulder pain Neurologic: cerebral aneurysm Psychiatric: anxiety Endocrine: as per Subjective / HPI Hematologic / Lymphatic: as per Subjective / HPI Physical Exam Constitutional: WD/WN, vitals as above no distress Neck: trachea midline, no thyromegaly Respiratory: normal respiratory effort, lungs clear to auscultation Cardiovascular: RRR, no murmur, no edema Gastrointestinal (Abdomen): soft. mild tenderness at RUQ, no rebound pain, no distend, BS +. Musculoskeletal: no cyanosis or clubbing, extremities motor strength 5/5 Neurologic: patellar DTR's 2+ bilat, sensation intact Psychiatric: A+Ox3, euthymic affect Results & Data Vital Signs (Past 12 Hours) Vital Signs Temp Pulse Pulse Pulse Resp BP BP 03/21/23 04:00 03/21/23 04:00 36.8 C 89 18 146/93 H 03/21/23 03:31 36.8 C 18 146/93 H 03/21/23 01:23 79 16 124/80 03/21/23 00:20 80 03/20/23 22:48 86 18 126/73 03/20/23 21:55 03/20/23 21:24 37 C 88 20 138/81 Pulse Ox O2 Del Method 03/21/23 04:00 Room Air 03/21/23 04:00 97 Room Air 03/21/23 03:31 97 Room Air 03/21/23 01:23 97 Room Air 03/21/23 00:20 03/20/23 22:48 96 Room Air 03/20/23 21:55 100 Room Air 03/20/23 21:24 96 Room Air Laboratory Results Lab Results 03/20/23 03/20/23 03/20/23 Range/Units 21:40 21:47 21:47 WBC 10.35 (4.8-10.8) K/ul RBC 4.45 (4.20-5.40) M/uL Hgb 13.7 (12.0-16.0) g/dl Hct 41.0 (37.0-47.0) % MCV 92.1 (80.0-100.0) fL MCH 30.8 (25.0-34.0) pg MCHC 33.4 (32.0-36.0) g/dL RDW Std Deviation 43.4 (36.4-46.3) fL RDW Coeff of Eunice 12.9 (11.5-14.5) % Plt Count 253 (130-400) K/uL MPV 10.8 (9.4-12.4) fL Immature Gran % (Auto) 0.5 % Neut % (Auto) 63.7 % Lymph % (Auto) 25.1 % [place] % (Auto) 9.0 % Eos % (Auto) 1.2 % Baso % (Auto) 0.5 % Neut # (Auto) 6.60 H (1.40-6.50) K/uL Lymph # (Auto) 2.60 (1.2-3.4) K/uL [place] # (Auto) 0.93 H (0.11-0.59) K/uL Eos # (Auto) 0.12 (0-0.50) K/uL Baso # (Auto) 0.05 (0-0.2) K/uL Immature Gran # (Auto) 0.05 (0.01-0.20) K/uL Sodium 138 (136-145) mmol/L Potassium 4.0 (3.5-5.1) mmol/L Chloride 102 (98-107) mmol/L Carbon Dioxide 28 (21-32) mmol/L Anion Gap 8 (3-11) BUN 16 (6-23) mg/dl Creatinine 0.87 (0.6-1.2) mg/dl Est Cr Clr Drug Dosing 86.7 ml/min Est GFR ( Amer) 88.2 ml/min Est GFR (Non-Af Amer) 76.1 ml/min BUN/Creatinine Ratio 18.4 (10-20) Glucose 91 (70-99(Fasting)) mg/dl Calcium 8.8 (8.6-10.3) mg/dl Total Bilirubin 0.3 (0.2-1.0) mg/dl AST 14 (13-39) U/L ALT 9 (7-52) U/L Alkaline Phosphatase 65 (34-104) U/L Troponin I High Sens 2.8 (0-14) pg/ml Total Protein 7.1 (6.0-8.3) gm/dl Albumin 4.3 (3.4-5.0) gm/dl Globulin 2.8 (2.5-4.0) gm/dl Albumin/Globulin Ratio 1.5 (0.9-2) Lipase 40 (11-82) U/L HCG, Qual (Negative) Urine Color Yellow Urine Appearance Clear (Clear) Urine pH 7.0 (4.5-7.5) Ur Specific [place] 1.011 (1.000-1.030) Urine Protein Negative (Negative) Urine Glucose (UA) Negative (Negative) Urine Ketones Negative (Negative) Urine Blood Negative (Negative) Urine Nitrite Negative (Negative) Urine Bilirubin Negative (Negative) Urine Urobilinogen Negative (Negative) Ur Leukocyte Esterase Negative (Negative) SARS-CoV-2, RNA, NAAT (NEGATIVE) 03/20/23 03/20/23 03/21/23 Range/Units 21:47 23:09 05:44 WBC 9.41 (4.8-10.8) K/ul RBC 4.21 (4.20-5.40) M/uL Hgb 12.8 (12.0-16.0) g/dl Hct 39.2 (37.0-47.0) % MCV 93.1 (80.0-100.0) fL MCH 30.4 (25.0-34.0) pg MCHC 32.7 (32.0-36.0) g/dL RDW Std Deviation 44.1 (36.4-46.3) fL RDW Coeff of Eunice 12.8 (11.5-14.5) % Plt Count 233 (130-400) K/uL MPV 10.9 (9.4-12.4) fL Immature Gran % (Auto) 1.4 % Neut % (Auto) 61.6 % Lymph % (Auto) 26.4 % [place] % (Auto) 8.5 % Eos % (Auto) 1.6 % Baso % (Auto) 0.5 % Neut # (Auto) 5.80 (1.40-6.50) K/uL Lymph # (Auto) 2.48 (1.2-3.4) K/uL [place] # (Auto) 0.80 H (0.11-0.59) K/uL Eos # (Auto) 0.15 (0-0.50) K/uL Baso # (Auto) 0.05 (0-0.2) K/uL Immature Gran # (Auto) 0.13 (0.01-0.20) K/uL Sodium (136-145) mmol/L Potassium (3.5-5.1) mmol/L Chloride (98-107) mmol/L Carbon Dioxide (21-32) mmol/L Anion Gap (3-11) BUN (6-23) mg/dl Creatinine (0.6-1.2) mg/dl Est Cr Clr Drug Dosing ml/min Est GFR ( Amer) ml/min Est GFR (Non-Af Amer) ml/min BUN/Creatinine Ratio (10-20) Glucose (70-99(Fasting)) mg/dl Calcium (8.6-10.3) mg/dl Total Bilirubin (0.2-1.0) mg/dl AST (13-39) U/L ALT (7-52) U/L Alkaline Phosphatase (34-104) U/L Troponin I High Sens (0-14) pg/ml Total Protein (6.0-8.3) gm/dl Albumin (3.4-5.0) gm/dl Globulin (2.5-4.0) gm/dl Albumin/Globulin Ratio (0.9-2) Lipase (11-82) U/L HCG, Qual Negative (Negative) Urine Color Urine Appearance (Clear) Urine pH (4.5-7.5) Ur Specific [place] (1.000-1.030) Urine Protein (Negative) Urine Glucose (UA) (Negative) Urine Ketones (Negative) Urine Blood (Negative) Urine Nitrite (Negative) Urine Bilirubin (Negative) Urine Urobilinogen (Negative) Ur Leukocyte Esterase (Negative) SARS-CoV-2, RNA, NAAT NEGATIVE (NEGATIVE) 03/21/23 Range/Units 05:44 WBC (4.8-10.8) K/ul RBC (4.20-5.40) M/uL Hgb (12.0-16.0) g/dl Hct (37.0-47.0) % MCV (80.0-100.0) fL MCH (25.0-34.0) pg MCHC (32.0-36.0) g/dL RDW Std Deviation (36.4-46.3) fL RDW Coeff of Eunice (11.5-14.5) % Plt Count (130-400) K/uL MPV (9.4-12.4) fL Immature Gran % (Auto) % Neut % (Auto) % Lymph % (Auto) % [place] % (Auto) % Eos % (Auto) % Baso % (Auto) % Neut # (Auto) (1.40-6.50) K/uL Lymph # (Auto) (1.2-3.4) K/uL [place] # (Auto) (0.11-0.59) K/uL Eos # (Auto) (0-0.50) K/uL Baso # (Auto) (0-0.2) K/uL Immature Gran # (Auto) (0.01-0.20) K/uL Sodium 142 (136-145) mmol/L Potassium 4.2 (3.5-5.1) mmol/L Chloride 108 H (98-107) mmol/L Carbon Dioxide 31 (21-32) mmol/L Anion Gap 3 (3-11) BUN 13 (6-23) mg/dl Creatinine 0.80 (0.6-1.2) mg/dl Est Cr Clr Drug Dosing 95.0 ml/min Est GFR ( Amer) 97.6 ml/min Est GFR (Non-Af Amer) 84.2 ml/min BUN/Creatinine Ratio 16.3 (10-20) Glucose 95 (70-99(Fasting)) mg/dl Calcium 8.6 (8.6-10.3) mg/dl Total Bilirubin 0.2 (0.2-1.0) mg/dl AST 12 L (13-39) U/L ALT 8 (7-52) U/L Alkaline Phosphatase 51 (34-104) U/L Troponin I High Sens (0-14) pg/ml Total Protein 6.3 (6.0-8.3) gm/dl Albumin 3.8 (3.4-5.0) gm/dl Globulin 2.5 (2.5-4.0) gm/dl Albumin/Globulin Ratio 1.5 (0.9-2) Lipase (11-82) U/L HCG, Qual (Negative) Urine Color Urine Appearance (Clear) Urine pH (4.5-7.5) Ur Specific [place] (1.000-1.030) Urine Protein (Negative) Urine Glucose (UA) (Negative) Urine Ketones (Negative) Urine Blood (Negative) Urine Nitrite (Negative) Urine Bilirubin (Negative) Urine Urobilinogen (Negative) Ur Leukocyte Esterase (Negative) SARS-CoV-2, RNA, NAAT (NEGATIVE) Diagnostic Findings Exam(s): US GALLBLADDER EXAM: US Abdomen Limited, Gallbladder CLINICAL HISTORY: Reason for exam: ruq pain. TECHNIQUE: Real-time ultrasound of the right upper quadrant with image documentation. COMPARISON: 09/29/2018. FINDINGS: Limitations: Exam is limited due to gas artifact in the bowel. Liver: The liver measures 16.5 cm. Gallbladder: Ruiz sign could not be assessed due to prior administration of medication. The gallbladder wall measures 1.9 mm. Normal distention of the gallbladder with a stone measuring 1.5 x 1.7 x 1. 4 cm. Common bile duct: The common bile duct measures 3 mm. No stones. No dilation. Pancreas: Unremarkable as visualized. Right kidney: The right kidney measures 11.5 cm. IMPRESSION: 1. Gallstone measuring maximum 1.7 cm with no distinct signs of acute cholecystitis. 2. Remainder of the right upper quadrant ultrasound unremarkable. Electronically signed by: Sara Marsh MD 03/20/23 22:52 PM
[2023-03-21] MEDS: FOLIC ACID 1 MG TAB PO SCH (07:57)
[2023-03-21] MEDS: PANTOprazole 40 MG TAB PO SCH (07:57)
[2023-03-21] MEDS: lamoTRIgine 100 MG TAB PO SCH (07:58)
[2023-03-21] MEDS: OXYBUTYNIN CHLORIDE XL 5 MG TABCR PO SCH (07:58)
[2023-03-21] MEDS ORDERED: GLUCAGON FOR INJ 1 MG VIAL SQ PRN (08:09)
[2023-03-21] MEDS ORDERED: GLUCOSE 10 TAB/TUBE PO PRN (08:09)
[2023-03-21] MEDS ORDERED: GLUCOSE 40% GEL 15 GM TUBE PO PRN (08:09)
[2023-03-21] MEDS ORDERED: CARBOHYDRATES FOR HYPOGLYCEMIA PO PRN (08:09)
[2023-03-21] MEDS ORDERED: DEXTROSE 50% 50 ML SYRINGE IV PRN (08:09)
[2023-03-21 08:55] LABS: Estimated Average Glucose 117 mg/dl; Hemoglobin A1C 5.7 % (4.5-5.6)
[2023-03-21] MEDS: ARMOUR THYROID 30 MG TAB PO SCH (09:28)
--- NOTE | 2023-03-21 10:42 | Electrocardiogram Report ---
Test Reason : Blood Pressure : / mmHG Vent. Rate : 082 BPM Atrial Rate : 082 BPM P-R Int : 148 ms QRS Dur : 068 ms QT Int : 364 ms P-R-T Axes : 046 000 020 degrees QTc Int : 425 ms Normal sinus rhythm Normal ECG When compared with ECG of 31-DEC-2014 12:36, No significant change was found Confirmed by Anderson Mckeon ([id number]) on 03/21/2023 10:42:14 AM Referred By: Belle Parekh Confirmed By:Anderson Mckeon
[2023-03-21] MEDS: MoRPHine SULFATE 4 MG/ML 1 ML CARP\\VIAL IV PRN ×3 (11:18→19:47)
[2023-03-21] MEDS ORDERED: INSULIN ASPART PER UNIT CHARGE SC SCH (11:30)
[2023-03-21] MEDS ORDERED: diphenhydrAMINE Capsule 25 MG CAP PO PRN (18:08)
[2023-03-21] MEDS ORDERED: PIPERACILLIN/TAZOBACTAM 4.5 GM (over 30 mins) IV ONE (18:30)
[2023-03-21] MEDS: lamoTRIgine 25 MG TAB PO SCH (19:53)
[2023-03-22] MEDS: PIPERACILLIN/TAZOBACTAM 4.5 GM in DEXTROSE 5% 100 ML IV SCH ×3 (01:44→18:29)
[2023-03-22] MEDS: MoRPHine SULFATE 4 MG/ML 1 ML CARP\\VIAL IV PRN ×3 (06:17→21:01)
[2023-03-22 07:26] LABS: Hematocrit (blood only) 42.7 % (37.0-47.0); Mean Corpuscular Hemoglobin 30.1 pg (25.0-34.0); Mean Corpuscular Hgb Conc 32.8 g/dL (32.0-36.0); Mean Corpuscular Volume 91.8 fL (80.0-100.0); Mean Platelet Volume 10.8 fL (9.4-12.4); Platelet Count 244 K/uL (130-400); RDW Coefficient of Variation 12.7 % (11.5-14.5); RDW Standard Deviation 42.8 fL (36.4-46.3); Red Blood Count 4.65 M/uL (4.20-5.40)
[2023-03-22 07:36] LABS: Albumin Globulin Ratio 1.5 (0.9-2); Albumin Level 3.9 gm/dl (3.4-5.0); BUN Creatinine Ratio 10.3 (10-20); Bilirubin,Total 0.4 mg/dl (0.2-1.0); Calcium 8.9 mg/dl (8.6-10.3); Creatinine Clr Calc Pharmacy 97.4 ml/min; Est GFR (African American) 100.6 ml/min; Est GFR (Non-African American) 86.8 ml/min; Globulin 2.6 gm/dl (2.5-4.0); Magnesium 2.1 mg/dl (1.7-2.4); Phosphorus 3.2 mg/dl (2.5-4.9); Potassium 4.2 mmol/L (3.5-5.1); Total Protein 6.5 gm/dl (6.0-8.3)
[2023-03-22] MEDS: ARMOUR THYROID 30 MG TAB PO SCH (08:49)
[2023-03-22] MEDS: traMADol HCL 50 MG TABLET PO PRN ×2 (08:49→19:47)
--- NOTE | 2023-03-22 08:55 | Hospitalist Progress Note ---
Date of Service March 22, 2023 Assessment & Plan (1) Biliary colic: Plan: no sepsis for now. Received antibiotics in the ER [facility] General surgery consult Re: Biliary colic Plan for cholecystomy today, continue on Zosyn for now hyperlipidemia, not on statin Rx LEXIE status post surgery DM 2 diet controlled, hemoglobin A1c of 5.27 September 2022 , ISS BG goal 110-140, update hemoglobin A1c hypothyroidism, euthyroid as of recent outpatient TSH hx fibromyalgia/migraine/chronic fatigue syndrome as per records anxiety/mood disorder, at baseline past tobacco abuse. DVT Prophylaxis. SCDs Re: Possible surgery Recommend pharmacologic anticoagulation with Lovenox 40 mg subcutaneous daily once bleeding risk is deemed to be minimal and negligible pending General Surgery evaluation. Full code Patient's : Mr. Geri Siddiqui, contact #[phone]. Admission and Anticipated Discharge Date Admission Date: March 21, 2023 Subjective Pt seen in follow up of biliary colic , plan for cholecystectomy today Patient is lying in bed, in no acute distress Did not sleep much overnight, however says that pain is controlled with morphine No fevers chills, no chest pain no shortness of breath, no n/v Review of Systems Review of Systems: All systems reviewed & are unremarkable except as noted in Subjective Physical Exam Physical Exam: GENERAL: Comfortable, pleasant, obese, no respiratory distress SKIN: Normal color, warm HEENT: [place] palpebral conjunctivae, no ptosis, dry buccal mucosa NECK : Supple, short neck, no tenderness CHEST : CTA, no tenderness HEART : RRR, no obvious murmurs ABDOMEN: Some distention, + right upper quadrant tenderness EXTREMITIES : Minimal LE swelling, no LE tenderness, no other conspicuous deformities noted NEUROLOGIC : Coherent, no facial asymmetry, no other gross focality Results & Data Results & Data Vital Signs (Past 12 Hours) Vital Signs Temp Pulse Resp BP Pulse Ox O2 Del Method 03/22/23 07:32 36.7 C 88 16 132/87 97 Room Air 03/21/23 21:17 36.9 C 96 H 18 130/86 97 Room Air Laboratory Results 03/22/23 03/22/23 03/21/23 Range/Units 06:32 06:32 12:06 WBC 8.60 (4.8-10.8) K/ul RBC 4.65 (4.20-5.40) M/uL Hgb 14.0 (12.0-16.0) g/dl Hct 42.7 (37.0-47.0) % MCV 91.8 (80.0-100.0) fL MCH 30.1 (25.0-34.0) pg MCHC 32.8 (32.0-36.0) g/dL RDW Std Deviation 42.8 (36.4-46.3) fL RDW Coeff of Eunice 12.7 (11.5-14.5) % Plt Count 244 (130-400) K/uL MPV 10.8 (9.4-12.4) fL Sodium 139 (136-145) mmol/L Potassium 4.2 (3.5-5.1) mmol/L Chloride 106 (98-107) mmol/L Carbon Dioxide 26 (21-32) mmol/L Anion Gap 7 (3-11) BUN 8 (6-23) mg/dl Creatinine 0.78 (0.6-1.2) mg/dl Est Cr Clr Drug Dosing 97.4 ml/min Est GFR ( Amer) 100.6 ml/min Est GFR (Non-Af Amer) 86.8 ml/min BUN/Creatinine Ratio 10.3 (10-20) Glucose 84 (70-99(Fasting)) mg/dl POC Glucose 76 (70-99) mg/dl Estimat Average Glucose mg/dl Hemoglobin A1c (4.5-5.6) % Calcium 8.9 (8.6-10.3) mg/dl Phosphorus 3.2 (2.5-4.9) mg/dl Magnesium 2.1 (1.7-2.4) mg/dl Total Bilirubin 0.4 (0.2-1.0) mg/dl AST 14 (13-39) U/L ALT 8 (7-52) U/L Alkaline Phosphatase 51 (34-104) U/L Total Protein 6.5 (6.0-8.3) gm/dl Albumin 3.9 (3.4-5.0) gm/dl Globulin 2.6 (2.5-4.0) gm/dl Albumin/Globulin Ratio 1.5 (0.9-2) / Range/Units 05:44 WBC (4.8-10.8) K/ul RBC (4.20-5.40) M/uL Hgb (12.0-16.0) g/dl Hct (37.0-47.0) % MCV (80.0-100.0) fL MCH (25.0-34.0) pg MCHC (32.0-36.0) g/dL RDW Std Deviation (36.4-46.3) fL RDW Coeff of Eunice (11.5-14.5) % Plt Count (130-400) K/uL MPV (9.4-12.4) fL Sodium (136-145) mmol/L Potassium (3.5-5.1) mmol/L Chloride (98-107) mmol/L Carbon Dioxide (21-32) mmol/L Anion Gap (3-11) BUN (6-23) mg/dl Creatinine (0.6-1.2) mg/dl Est Cr Clr Drug Dosing ml/min Est GFR ( Amer) ml/min Est GFR (Non-Af Amer) ml/min BUN/Creatinine Ratio (10-20) Glucose (70-99(Fasting)) mg/dl POC Glucose (70-99) mg/dl Estimat Average Glucose 117 mg/dl Hemoglobin A1c 5.7 H (4.5-5.6) % Calcium (8.6-10.3) mg/dl Phosphorus (2.5-4.9) mg/dl Magnesium (1.7-2.4) mg/dl Total Bilirubin (0.2-1.0) mg/dl AST (13-39) U/L ALT (7-52) U/L Alkaline Phosphatase (34-104) U/L Total Protein (6.0-8.3) gm/dl Albumin (3.4-5.0) gm/dl Globulin (2.5-4.0) gm/dl Albumin/Globulin Ratio (0.9-2) Medications Administered Current Inpatient Medications Acetaminophen (Acetaminophen 325 Mg Tab) 650 mg PO Q6H PRN PRN Reason: Fever/pain Stop: 04/19/23 23:40 Last Admin: 03/21/23 07:57 Dose: 650 mg Diphenhydramine HCl (Diphenhydramine Capsule 25 Mg Cap) 25 mg PO UD PRN PRN Reason: prior to zosyn Stop: 04/20/23 18:07 Folic Acid (Folic Acid 1 Mg Tab) 1 mg PO DAILY [facility] Stop: 04/20/23 08:59 Last Admin: 03/21/23 07:57 Dose: 1 mg Promethazine HCl 12.5 mg/ (Sodium Chloride) 50.5 mls @ 202 mls/hr IV Q6H PRN PRN Reason: Nausea And Vomiting Stop: 04/19/23 23:40 Last Infusion: 03/21/23 21:05 Dose: Infused Piperacillin Sod/Tazobactam (Sod 4.5 gm/ Dextrose) 120 mls @ 30 mls/hr IV Q8H [facility]; Protocol Stop: 03/26/23 00:59 Last Infusion: 03/22/23 05:47 Dose: Infused Lamotrigine (Lamotrigine 100 Mg Tab) 200 mg PO DAILY [facility] Stop: 04/20/23 08:59 Last Admin: 03/21/23 07:58 Dose: 200 mg Lamotrigine (Lamotrigine 25 Mg Tab) 50 mg PO HS [facility] Stop: 04/20/23 20:59 Last Admin: 03/21/23 19:53 Dose: Not Given Lorazepam (Lorazepam 0.5 Mg Tab) 0.5 mg PO TID PRN PRN Reason: Anxiety Stop: 04/20/23 03:31 Morphine Sulfate (Morphine Sulfate 4 Mg/Ml 1 Ml Carp\Vial) 4 mg IV Q4H PRN PRN Reason: Pain Stop: 04/03/23 23:40 Last Admin: 03/22/23 06:17 Dose: 4 mg Oxybutynin Chloride (Oxybutynin Chloride Xl 5 Mg Tabcr) 15 mg PO QAM [facility] Stop: 04/20/23 08:59 Last Admin: 03/21/23 07:58 Dose: 15 mg Pantoprazole Sodium (Pantoprazole 40 Mg Tab) 40 mg PO QAM [facility] Stop: 04/20/23 08:59 Last Admin: 03/21/23 07:57 Dose: 40 mg Thyroid ([place] Thyroid 30 Mg Tab) 60 mg PO DAILYBB [facility] Stop: 04/20/23 06:29 Last Admin: 03/22/23 08:49 Dose: 60 mg Tramadol HCl (Tramadol Hcl 50 Mg Tablet) 25 - 50 mg PO Q4H PRN PRN Reason: Pain Stop: 04/19/23 23:56 Last Admin: 03/22/23 08:49 Dose: 50 mg
[2023-03-22] MEDS: lamoTRIgine 100 MG TAB PO SCH (09:28)
[2023-03-22] MEDS: OXYBUTYNIN CHLORIDE XL 5 MG TABCR PO SCH (09:28)
[2023-03-22] MEDS: FOLIC ACID 1 MG TAB PO SCH (09:28)
[2023-03-22] MEDS: PANTOprazole 40 MG TAB PO SCH (09:28)
[2023-03-22] MEDS ORDERED: DEXAMETHASONE SOD INJ 4 MG/ML VIAL ONE (10:47)
[2023-03-22] MEDS ORDERED: PROPOFOL IV EMULSION 10 MG/ML 20 ML VIAL IV ONE (10:47)
[2023-03-22] MEDS ORDERED: LIDOCAINE 2% 2 ML VIAL/AMP(20MG/ML) INFIL ONE (10:47)
[2023-03-22] MEDS ORDERED: ONDANSETRON INJ 2 MG/ML 2 ML VIAL ONE ×2 (10:47→13:42)
[2023-03-22] MEDS ORDERED: fentaNYL citrate PF 100 MCG/2 ML VIAL ONE ×2 (10:47→13:42)
[2023-03-22] MEDS ORDERED: MIDAZOLAM HCL 1 MG/ML 2ML VIAL ONE (10:55)
[2023-03-22] MEDS ORDERED: ROCURONIUM BROMIDE 10 MG/ML 5 ML VIAL IV ONE (10:55)
--- NOTE | 2023-03-22 11:01 | Anesthesiology Consultation ---
Date of Service March 22, 2023 Assessment & Plan (1) Encounter for pre-operative examination: Chart Review Chart Review: Acceptable Risk for Surgery History Surgery Operation Date: 03/22/23 07:00 Proposed Procedures p Laparoscopic Cholecystectomy - Al Stock MD Operation Date: 03/22/23 10:00 Proposed Procedures p Laparoscopic Cholecystectomy - Al Stock MD Height/Weight Height: 5 ft 6 in Weight: 96 kg Allergies Allergy/AdvReac Type Severity Reaction Status Date / Time amoxicillin Allergy Intermediate ITCHING Verified 03/20/23 22:41 azithromycin Allergy Intermediate itching Verified 03/20/23 22:41 [From Zithromax Z-Owen] gabapentin Allergy Intermediate HIVES Verified 03/20/23 22:41 Sulfa (Sulfonamide Allergy Intermediate Rash Verified 03/20/23 22:41 Antibiotics) Medications Home Medications Medication Instructions Recorded Confirmed Last Taken cholecalciferol (vitamin D3) 50 2,000 unit PO DAILY 08/11/18 03/20/23 03/20/23 mcg (2,000 unit) tablet folic acid 1 mg tablet 1 mg PO DAILY 08/11/18 03/20/23 03/20/23 thyroid (pork) 60 mg tablet 60 mg PO DAILY 08/11/18 03/20/23 03/20/23 ([place] Thyroid) fremanezumab-vfrm 225 mg/1.5 mL 225 mg subcut .[id number] 02/17/21 03/20/23 Unkno wn subcutaneous syringe (Ajovy Syringe) estradiol 0.05 mg-norethindrone 1 patch transdermal 2XWK 03/20/23 03/20/23 Unknown 0.14 mg/24 hr semiwkly transderm patch (CombiPatch) lamotrigine 25 mg tablet 0 mg PO DIRECTED 03/20/23 03/20/23 03/20/23 lorazepam 0.5 mg tablet 0.5 mg PO TID PRN Anxiety 03/20/23 03/20/23 Unknown omeprazole 40 mg capsule,delayed 40 mg PO QAM 03/20/23 03/20/23 03/20/23 release oxybutynin chloride 15 mg 15 mg PO QAM 03/20/23 03/20/23 03/20/23 tablet,extended release 24 hr rimegepant 75 mg disintegrating 75 mg PO DIRECTED PRN Migraine 03/20/23 03/20/23 Unknown tablet (Nurtec ODT) Headache tizanidine 4 mg tablet 4 mg PO HS 03/20/23 03/20/23 Unknown tramadol 50 mg tablet 50 mg PO HS PRN RESTLESS LEGS 03/20/23 03/20/23 Unknown Active Medications Generic Name Dose Route Start Last Admin Trade Name Aguilarq PRN Reason Stop Dose Admin Acetaminophen 650 mg 03/20/23 23:41 03/21/23 07:57 Acetaminophen 325 Mg Tab PO 04/19/23 23:40 650 mg Q6H PRN Administration Fever/pain Folic Acid 1 mg 03/21/23 09:00 03/22/23 09:28 Folic Acid 1 Mg Tab PO 04/20/23 08:59 1 mg DAILY [place] Administration Promethazine HCl 12.5 mg/ 50.5 mls @ 202 mls/hr 03/20/23 23:41 03/21/23 21:05 Sodium Chloride IV 04/19/23 23:40 Infused Q6H PRN Infusion Nausea And Vomiting Piperacillin Sod/Tazobactam 120 mls @ 30 mls/hr 03/22/23 01:00 03/22/23 10:43 Sod 4.5 gm/ Dextrose IV 03/26/23 00:59 30 mls/hr Q8H [place] Administration Protocol Lamotrigine 200 mg 03/21/23 09:00 03/22/23 09:28 Lamotrigine 100 Mg Tab PO 04/20/23 08:59 200 mg DAILY [place] Administration Lamotrigine 50 mg 03/21/23 21:00 03/21/23 19:53 Lamotrigine 25 Mg Tab PO 04/20/23 20:59 Not Given HS [place] Morphine Sulfate 4 mg 03/20/23 23:41 03/22/23 10:43 Morphine Sulfate 4 Mg/Ml 1 Ml Carp\Vial IV 04/03/23 23:40 4 mg Q4H PRN Administration Pain Oxybutynin Chloride 15 mg 03/21/23 09:00 03/22/23 09:28 Oxybutynin Chloride Xl 5 Mg Tabcr PO 04/20/23 08:59 15 mg QAM [place] Administration Pantoprazole Sodium 40 mg 03/21/23 09:00 03/22/23 09:28 Pantoprazole 40 Mg Tab PO 04/20/23 08:59 40 mg QAM [place] Administration Thyroid 60 mg 03/21/23 06:30 03/22/23 08:49 [place] Thyroid 30 Mg Tab PO 04/20/23 06:29 60 mg DAILYBB [place] Administration Tramadol HCl 25 - 50 mg 03/20/23 23:57 03/22/23 08:49 Tramadol Hcl 50 Mg Tablet PO 04/19/23 23:56 50 mg Q4H PRN Administration Pain Past Medical History Medical History (Updated 03/22/23 @ 11:02 by Chung Dsouza MD) Anxiety Cerebral aneurysm Cervical facet joint syndrome Cervicalgia Chronic left shoulder pain Diffuse myofascial pain syndrome Fibromyalgia Migraine Myofascial pain LEXIE (obstructive sleep apnea) Past Surgical History Surgical History (Updated 03/22/23 @ 11:00 by Chung Dsouza MD) S/P functional endoscopic sinus surgery S/P hernia repair S/P UPPP (uvulopalatopharyngoplasty) Social History Smoking Status: Never smoker Do You Dip or Chew Tobacco: No Hx Alcohol Use: Yes Alcohol type: beer and hard liquor alcohol intake frequency: a few times a week Hx Substance Use: No substance use type: does not use Physical Exam Vital Signs Last Vital Signs Temp 36.7 C 03/22/23 07:32 Pulse 88 03/22/23 07:32 Resp 16 03/22/23 07:32 BP 132/87 03/22/23 07:32 Pulse Ox 97 03/22/23 07:32 O2 Del Method Room Air 03/22/23 09:22 Testing Laboratory Results 03/22/23 06:32 03/22/23 06:32 Hemoglobin A1c 5.7 % (4.5-5.6) H 03/21/23 05:44 Urine Color Yellow 03/20/23 21:40 Urine Appearance Clear (Clear) 03/20/23 21:40 Urine pH 7.0 (4.5-7.5) 03/20/23 21:40 Ur Specific [place] 1.011 (1.000-1.030) 03/20/23 21:40 Urine Protein Negative (Negative) 03/20/23 21:40 Urine Glucose (UA) Negative (Negative) 03/20/23 21:40 Urine Ketones Negative (Negative) 03/20/23 21:40 Urine Nitrite Negative (Negative) 03/20/23 21:40 Ur Leukocyte Esterase Negative (Negative) 03/20/23 21:40
[2023-03-22] MEDS ORDERED: LIDOCAINE 1% LOCAL 20 ML VIAL ONE (11:05)
[2023-03-22] MEDS ORDERED: BUPIVACAINE 0.5 % 5 MG/1 ML MPF 30ML VIAL ONE (11:05)
[2023-03-22] MEDS ORDERED: BACITRACIN OINT 15 GM TUBE ONE (11:06)
--- NOTE | 2023-03-22 11:37 | History & Physical Bridge Note ---
Date of Service March 22, 2023 History & Physical Bridge Note I have examined the patient, reviewed the History & Physical and in the interval since the performance of the History & Physical I have noted the following changes of clinical significance: no changes noted
[2023-03-22] MEDS ORDERED: KETOROLAC 30 MG/ML VIAL IV PRN ×2 (11:56→14:07)
[2023-03-22] MEDS ORDERED: ONDANSETRON INJ 2 MG/ML 2 ML VIAL IV PRN ×2 (11:56→14:07)
[2023-03-22] MEDS ORDERED: SCOPOLAMINE 1 MG TDSY TD ONE ×2 (11:56→11:57)
[2023-03-22] MEDS ORDERED: ATROPINE SULFATE 0.1 MG/ML 10ML SYR IV PRN ×2 (11:56→14:07)
[2023-03-22] MEDS ORDERED: fentaNYL citrate PF 100 MCG/2 ML VIAL IV PRN (11:56)
[2023-03-22] MEDS ORDERED: PROMETHAZINE HCL 6.25 MG in SODIUM CHLORIDE 0.9% 50 ML IV PRN ×2 (11:56→14:07)
[2023-03-22] MEDS ORDERED: KETAMINE 50 MG/5 ML SYRINGE ONE (12:23)
[2023-03-22] MEDS ORDERED: ePHEDrine sulfate 50 MG/ML SYR ONE (13:04)
[2023-03-22] MEDS ORDERED: KETOROLAC 30 MG/ML VIAL ONE (13:04)
[2023-03-22] MEDS ORDERED: NEOSTIGMINE METHYLSULFATE 1 MG/ML 10ML VIAL ONE (13:04)
[2023-03-22] MEDS ORDERED: GLYCOPYRROLATE 0.2 MG/ML VIAL ONE (13:04)
[2023-03-22] MEDS ORDERED: PHENYLEPHRINE 100MCG/ML 5ML SYR ONE (13:04)
--- NOTE | 2023-03-22 13:18 | Post Operative Brief Note ---
Immediate Post Op Note v1 Date of Surgery March 22, 2023 Pre & Post Diagnosis Operation Date: 03/22/23 10:00 Pre-Op Diagnosis: Cholelithiasis and cholecystitis without obstruction, biliarly colic Post-Op Diagnosis: Cholelithiasis and cholecystitis without obstruction, biliarly colic I identified the patient and participated in the time-out.: Yes Procedure Operation Date: 03/22/23 10:00 Actual Procedures p Laparoscopic Cholecystectomy(Not Applicable) - Al Stock MD, Dawit Prakash MD Surgeon Al Stock MD, Dawit Prakash MD [employer] registered nurse surgical services Estimated Blood Loss 10 Findings Consistent with Post-Op Diagnosis Fluids 800ml Specimens gallbladder Anesthesia Type General Complications none Disposition Accompanied Patient To Recovery: Yes
[2023-03-22] MEDS ORDERED: traMADol HCL 50 MG TABLET PO PRN (13:29)
[2023-03-22] MEDS ORDERED: NON-FORMULARY MEDICATION (Fremanezumab-Vfrm [Ajovy Syringe] 225 mg/1.5 mL syringe) SQ SCH (13:30)
[2023-03-22] MEDS: fentaNYL citrate PF 100 MCG/2 ML VIAL IV PRN ×4 (13:46→14:01)
[2023-03-22] MEDS ORDERED: PROMETHAZINE HCL INJ 25 MG/ML 1 ML VIAL ONE (13:54)
[2023-03-22] MEDS ORDERED: DROPERIDOL 5 MG/2 ML VIAL IV STA (14:23)
--- NOTE | 2023-03-22 14:40 | Anesthesiology Progress Note ---
Date of Service March 22, 2023 Anesthesia Post Procedure Vital Signs Vital Signs: Temp Pulse Pulse Resp BP Pulse Ox O2 Del Method 03/22/23 14:35 36.2 C L 108 H 12 138/85 94 Room Air 03/22/23 14:25 107 H 12 162/75 H 100 Room Air 03/22/23 14:15 108 H 17 137/74 99 Room Air 03/22/23 13:55 109 H 11 L 144/76 H 100 Oxymask 03/22/23 14:05 112 H 19 136/86 100 Oxymask 03/22/23 13:45 102 H 19 135/73 100 Oxymask 03/22/23 13:35 36.5 C 115 H 10 L 130/76 100 Oxymask 03/22/23 11:29 36.9 C 108 H 20 158/99 H 98 Room Air 03/22/23 09:22 Room Air 03/22/23 07:32 36.7 C 88 16 132/87 97 Room Air 03/21/23 21:17 36.9 C 96 H 18 130/86 97 Room Air 03/21/23 15:29 36.8 C 87 16 123/78 96 Room Air O2 Flow Rate 03/22/23 14:35 03/22/23 14:25 03/22/23 14:15 03/22/23 13:55 6 03/22/23 14:05 2 03/22/23 13:45 6 03/22/23 13:35 6 03/22/23 11:29 03/22/23 09:22 03/22/23 07:32 03/21/23 21:17 03/21/23 15:29 Pain Intensity Right Upper Abdomen: Pain Intensity: 6 Head: Pain Intensity: 7 Abdomen: Pain Intensity: 2 Transfer of Care Handoff Completed per policy Notes Mental Status: alert / awake / arousable Patient Amnestic to Procedure: Yes Nausea / Vomiting: adequately controlled Pain: adequately controlled Airway Patency, RR, SpO2: stable & adequate BP & HR: stable & adequate Hydration State: stable & adequate Anesthetic Complications: no major complications apparent
[2023-03-22] MEDS: LACTATED RINGER'S 1,000 ML IV SCH (15:40)
[2023-03-22] MEDS: CHECK SCOPOLAMINE PATCH PLACEMENT SCH ×2 (15:40→23:49)
[2023-03-22] MEDS ORDERED: tiZANidine HCL 4 MG TABLET PO SCH (21:00)
[2023-03-22] MEDS: lamoTRIgine 25 MG TAB PO SCH (21:01)
--- NOTE | 2023-03-22 22:57 | Operative Report (OR) ---
DATE OF PROCEDURE: 03/22/2023. PREOPERATIVE DIAGNOSES: Acute cholecystitis, cholelithiasis. POSTOPERATIVE DIAGNOSES: Acute cholecystitis, cholelithiasis. OPERATION: Laparoscopic cholecystectomy. SURGEON: Al Stock MD and Dr. Dawit Prakash. ANESTHESIA: General. ESTIMATED BLOOD LOSS: About 10 mL. FINDINGS: Acute cholecystitis, cholelithiasis. COMPLICATIONS: None. INDICATIONS FOR THE PROCEDURE: This is a 52-year-old female who was admitted to the hospital for acute right upper quadrant pain. The patient had a CT and ultrasound diagnosis of acute cholecystitis with cholelithiasis. Based on patient's history and physical exam and CT scan and U/S study- could be difficult gallbladder, Dr. Prakash with me together to do the surgery, patient agreed with it. I recommended to do a laparoscopic cholecystectomy, possible open, possible cholangiogram with Dr. Dawit Prakash. I did talk to the patient about the benefit, risk, alternate procedure. I indicated the risks may include, but not limited to, such as bleeding, infection, injury to other organs, injury to common bile duct, bile leak, may need ERCP, incisional hernia. The patient understands. She signed informed consent and I answered all questions. DETAILS OF PROCEDURE: After we identified the patient and verified the procedure, we brought in the patient to the OR and put the patient in the supine position on the OR table. The patient received SCD on bilateral legs to prevent DVT. Also, the patient received 4.5 grams Zosyn IV for prophylactic antibiotic. The patient received general anesthesia without difficulty. The abdomen was prepped and draped in routine sterile fashion. After timeout, I made a small incision about 1.5 cm incision just above the umbilicus, dissected subcutaneous layer, reached the fascial layer, opened the fascial layer, opened peritoneum. Under direct vision, put a Victor M trocar in, connected to CO2 to create pneumoperitoneum, flow rate at 6 liters per minute, pressure not more than 14 mmHg. Once we got a nice pneumoperitoneum, we put a camera in, looked around the abdomen. Normal finding on the liver; however, the gallbladder, significant distention with gallbladder wall thickening, edema, confirmed diagnosis of acute cholecystitis. Once we confirmed the diagnosis of acute cholecystitis, I put another two 5 mm trocars on the right upper quadrant and one 11 trocar on the epigastric area. Once all trocars in, we used the large needle to decompress the gallbladder first. Then, we used the grasper to hold the base of gallbladder, put a direction to the diaphragm, another grasper to hold the pouch of gallbladder, put a lateral to explore the triangle of [place]. The cystic duct was identified and mobilized. I put two 10 mm metal clips on the proximal cystic duct, one on the distal cystic duct, then used a scissor for transection of cystic duct; rechecked, no bile leak. The cystic artery was identified and mobilized. I put two 10 mm metal clips on the proximal cystic artery and one on the distal cystic artery, then used a scissor for transection of cystic artery; rechecked, no active bleeding. Then, we used the Bovie to take down gallbladder from liver bed, rechecked, no active bleeding or bile leak from liver bed. Then, we removed gallbladder through the catch bag. Then, we reinserted the Victor M trocar in, connected to CO2 to create pneumoperitoneum, again looked around the abdomen, no active bleeding or bile leak from liver bed. Then, we removed all trocars under direct vision. No active bleeding from the trocar site. Pneumoperitoneum was released, then I injected local anesthesia by use 1% lidocaine and 0/5% marcaine on incision sites, then I closed the umbilical incision fascial layer by using 0 Vicryl [id number] x2, closed subcutaneous layer by using 2-0 Vicryl interruptedly, closed skin by using 4-0 Vicryl continuous running, closed the epigastric incision fascial layer by using 0 Vicryl [id number] x2, closed subcutaneous layer by using 2-0 Vicryl interruptedly, closed skin by using 4-0 Vicryl interruptedly, closed another two 5 mm trocar site of skin only by using 4-0 Vicryl. Then, we put the dressing on. The patient tolerated the procedure well. All instrument, needle and sponge counts were correct x2 at the end of the case. The patient was transferred to recovery room in stable condition. The specimen was sent to pathology. After the procedure, I did talk to the patient and the patient's family member about the OR finding and procedure we did, they understand. Job ID: [id number] [facility]
[2023-03-23] MEDS: traMADol HCL 50 MG TABLET PO PRN ×3 (00:40→12:41)
[2023-03-23] MEDS: MoRPHine SULFATE 4 MG/ML 1 ML CARP\\VIAL IV PRN ×3 (01:12→10:31)
[2023-03-23] MEDS: LACTATED RINGER'S 1,000 ML IV SCH (01:13)
[2023-03-23] MEDS ORDERED: LACTATED RINGER'S 1,000 ML IV ONE (01:32)
[2023-03-23] MEDS: PIPERACILLIN/TAZOBACTAM 4.5 GM in DEXTROSE 5% 100 ML IV SCH ×2 (03:00→10:37)
[2023-03-23 03:02] LABS: BUN Creatinine Ratio 9.2 (10-20); Calcium 8.8 mg/dl (8.6-10.3); Est GFR (African American) 103.8 ml/min; Est GFR (Non-African American) 89.6 ml/min; Magnesium 1.9 mg/dl (1.7-2.4); Potassium 4.5 mmol/L (3.5-5.1)
[2023-03-23 03:12] LABS: Hematocrit (blood only) 38.7 % (37.0-47.0); Mean Corpuscular Hemoglobin 30.7 pg (25.0-34.0); Mean Corpuscular Hgb Conc 33.6 g/dL (32.0-36.0); Mean Corpuscular Volume 91.3 fL (80.0-100.0); Mean Platelet Volume 10.7 fL (9.4-12.4); Platelet Count 243 K/uL (130-400); RDW Coefficient of Variation 12.1 % (11.5-14.5); RDW Standard Deviation 40.5 fL (36.4-46.3); Red Blood Count 4.24 M/uL (4.20-5.40)
[2023-03-23] MEDS ORDERED: MAGNESIUM SULFATE / D5W 1 GM/100 ML BAG IV ONE (03:30)
[2023-03-23 04:01] LABS: Basophils # (auto) 0.01 K/uL (0-0.2); Basophils % (auto) 0.1 %; Immature Granulocytes # (auto) 0.05 K/uL (0.01-0.20); Immature Granulocytes % (auto) 0.5 %; Lymphocytes # (auto) 0.58 K/uL (1.2-3.4); Lymphocytes % (auto) 5.5 %; Monocytes # (auto) 0.37 K/uL (0.11-0.59); Monocytes % (auto) 3.5 %; Neutrophils # (auto) 9.49 K/uL (1.40-6.50); Neutrophils % (auto) 90.4 %
[2023-03-23] MEDS: ARMOUR THYROID 30 MG TAB PO SCH (06:15)
--- NOTE | 2023-03-23 08:09 | Electrocardiogram Report ---
Test Reason : Blood Pressure : / mmHG Vent. Rate : 112 BPM Atrial Rate : 112 BPM P-R Int : 146 ms QRS Dur : 068 ms QT Int : 318 ms P-R-T Axes : 052 -01 022 degrees QTc Int : 434 ms Sinus tachycardia Nonspecific T wave abnormality Anterolateral leads Abnormal ECG When compared with ECG of 20-MAR-2023 21:52, Nonspecific T wave abnormality now evident in Anterolateral leads Confirmed by Duke George ([id number]) on 03/23/2023 8:09:39 AM Referred By: Belle Parekh Confirmed By:Duke George
[2023-03-23] MEDS: lamoTRIgine 100 MG TAB PO SCH (08:12)
[2023-03-23] MEDS: FOLIC ACID 1 MG TAB PO SCH (08:12)
[2023-03-23] MEDS: OXYBUTYNIN CHLORIDE XL 5 MG TABCR PO SCH (08:13)
[2023-03-23] MEDS: PANTOprazole 40 MG TAB PO SCH (08:13)
[2023-03-23] MEDS: CHECK SCOPOLAMINE PATCH PLACEMENT SCH (08:14)
[2023-03-23] MEDS ORDERED: CHOLECALCIFEROL 1,000 UNITS 25 MCG TAB PO SCH (09:00)
--- NOTE | 2023-03-23 10:41 | Surgery Progress Note ---
Date of Service March 23, 2023 Assessment & Plan (1) Biliary colic: Plan: see below (2) Cholelithiasis and cholecystitis without obstruction: Plan: POD # 1 s/p laparoscopic cholecystectomy - avss - postop pain minimal and controlled - no n,v Plan: okay from surgical standpoint for discharge today discharge instructions reviewed f/u surgery office in 2 weeks Rx for Tramadol will be sent to pharmacy Discussed with Dr. daniels who will see patient later this am/early afternoon 03/23/2023 11:44AM, Dr. Daniels I saw pt, I agreed with above assessment. Thanks, Admission and Anticipated Discharge Date Admission Date: March 21, 2023 Subjective feeling well today pain at incision sites, had RUQ pain with Turkish ice but it resolved quickly no n,v tolerated clears otherwise ambulating and urinating without difficulty no chest pain or shortness of breath Review of Systems Constitutional: as per Subjective / HPI no distress Respiratory: as per Subjective / HPI Cardiovascular: as per Subjective / HPI Gastrointestinal: as per Subjective / HPI (abdominal pain, dysphagia) Genitourinary: as per Subjective / HPI Musculoskeletal: left shoulder pain Neurologic: cerebral aneurysm Psychiatric: anxiety Endocrine: as per Subjective / HPI Hematologic / Lymphatic: as per Subjective / HPI Physical Exam Constitutional: WD/WN, vitals as above cooperative and comfortable; no acute distress and not ill appearing Neck: trachea midline, no thyromegaly Respiratory: normal respiratory effort, lungs clear to auscultation normal respiratory effort; no respiratory distress Cardiovascular: RRR, no murmur, no edema Gastrointestinal (Abdomen): Inspection/Auscultation: abdomen normal to inspection and + abdominal surgical incision (covered with clean/dry dressings); abdomen not distended and + abnormal bowel sounds Percussion/Palpation: + abdomen tender (mild at incision sites) and abdomen soft; no guarding and abdomen not rigid Musculoskeletal: no cyanosis or clubbing, extremities motor strength 5/5 Skin: no rashes, warm and dry Neurologic: patellar DTR's 2+ bilat, sensation intact Psychiatric: A+Ox3, euthymic affect Results & Data Vital Signs (Past 12 Hours) Vital Signs Temp Pulse Pulse Resp BP Pulse Ox O2 Del Method 03/23/23 07:58 Room Air 03/23/23 07:44 36.8 C 110 H 16 130/84 96 Room Air 03/23/23 02:00 112 H 03/23/23 04:00 36.9 C 107 H 18 113/77 91 Room Air 03/23/23 00:00 37.2 C 118 H 18 122/70 92 Room Air Laboratory Results 03/23/23 03/23/23 03/23/23 Range/Units 03:05 01:41 01:41 WBC 10.50 RBC 4.24 Hgb 13.0 Hct 38.7 MCV 91.3 MCH 30.7 MCHC 33.6 RDW Std Deviation 40.5 RDW Coeff of Eunice 12.1 Plt Count 243 MPV 10.7 Immature Gran % (Auto) 0.5 Neut % (Auto) 90.4 Lymph % (Auto) 5.5 [place] % (Auto) 3.5 Eos % (Auto) 0.0 Baso % (Auto) 0.1 Neut # (Auto) 9.49 H Lymph # (Auto) 0.58 L [place] # (Auto) 0.37 Eos # (Auto) 0.00 Baso # (Auto) 0.01 Immature Gran # (Auto) 0.05 Absolute Nucleated RBC Nucleated RBC % (auto) Neutrophils % (Manual) Band Neutrophils % Lymphocytes % (Manual) Prolymphocyte % Reactive Lymphs % (Man) Monocytes % (Manual) Eosinophils % (Manual) Basophils % (Manual) Metamyelocytes % (Man) Myelocytes % (Man) Promyelocytes % (Man) Blast Cells % (Manual) Plasma Cell % (Manual) Other Cells % Nucleated RBC % Neutrophils # (Manual) Band Neutrophils # Total Absolute Neuts Lymphocytes # (Manual) Prolymphocyte # Reactive Lymphs # Total Abs Lymphocytes Monocytes # (Manual) Eosinophils # (Manual) Basophils # (Manual) Metamyelocytes # (Man) Myelocytes # (Manual) Promyelocytes # (Man) Blast Cells # (Man) Plasma Cell # (Manual) Other Cells # Nucleated RBCs # (Man) Hypersegmented Neuts Hyposegmented Neuts Hypogranular Neuts Large Granular Lymphs # Lrg Granular Lymphs Hairy Cells Smudge Cells Toxic Granulation Toxic Vacuolation Dohle Bodies David Rods Platelet Estimate Hypogranular Platelets Giant Platelets Platelet Satelliting RBC Morphology Polychromasia Hypochromasia Poikilocytosis Basophilic Stippling Anisocytosis Microcytosis Macrocytosis Spherocytes Pappenheimer Bodies Sickle Cells Target Cells Tear Drop Cells Ovalocytes Stomatocytes [place] Bodies Echinocytes Acanthocytes (Spur) Rouleaux RBC Agglutinates Schistocytes Sezary Cell Sodium 137 (136-145) mmol/L Potassium 4.5 (3.5-5.1) mmol/L Chloride 105 (98-107) mmol/L Carbon Dioxide 26 (21-32) mmol/L Anion Gap 6 (3-11) BUN 7 (6-23) mg/dl Creatinine 0.76 (0.6-1.2) mg/dl Est Cr Clr Drug Dosing 100.0 ml/min Est GFR ( Amer) 103.8 ml/min Est GFR (Non-Af Amer) 89.6 ml/min BUN/Creatinine Ratio 9.2 L (10-20) Glucose 132 H (70-99(Fasting)) mg/dl Calcium 8.8 (8.6-10.3) mg/dl Magnesium 1.9 (1.7-2.4) mg/dl TSH 0.447 (0.300-4.500) uIu/ml Blood Parasites ID 03/23/23 Range/Units 01:41 WBC Cancelled RBC Cancelled Hgb Cancelled Hct Cancelled MCV Cancelled MCH Cancelled MCHC Cancelled RDW Std Deviation Cancelled RDW Coeff of Eunice Cancelled Plt Count Cancelled MPV Cancelled Immature Gran % (Auto) Cancelled Neut % (Auto) Cancelled Lymph % (Auto) Cancelled [place] % (Auto) Cancelled Eos % (Auto) Cancelled Baso % (Auto) Cancelled Neut # (Auto) Cancelled Lymph # (Auto) Cancelled [place] # (Auto) Cancelled Eos # (Auto) Cancelled Baso # (Auto) Cancelled Immature Gran # (Auto) Cancelled Absolute Nucleated RBC Cancelled Nucleated RBC % (auto) Cancelled Neutrophils % (Manual) Cancelled Band Neutrophils % Cancelled Lymphocytes % (Manual) Cancelled Prolymphocyte % Cancelled Reactive Lymphs % (Man) Cancelled Monocytes % (Manual) Cancelled Eosinophils % (Manual) Cancelled Basophils % (Manual) Cancelled Metamyelocytes % (Man) Cancelled Myelocytes % (Man) Cancelled Promyelocytes % (Man) Cancelled Blast Cells % (Manual) Cancelled Plasma Cell % (Manual) Cancelled Other Cells % Cancelled Nucleated RBC % Cancelled Neutrophils # (Manual) Cancelled Band Neutrophils # Cancelled Total Absolute Neuts Cancelled Lymphocytes # (Manual) Cancelled Prolymphocyte # Cancelled Reactive Lymphs # Cancelled Total Abs Lymphocytes Cancelled Monocytes # (Manual) Cancelled Eosinophils # (Manual) Cancelled Basophils # (Manual) Cancelled Metamyelocytes # (Man) Cancelled Myelocytes # (Manual) Cancelled Promyelocytes # (Man) Cancelled Blast Cells # (Man) Cancelled Plasma Cell # (Manual) Cancelled Other Cells # Cancelled Nucleated RBCs # (Man) Cancelled Hypersegmented Neuts Cancelled Hyposegmented Neuts Cancelled Hypogranular Neuts Cancelled Large Granular Lymphs Cancelled # Lrg Granular Lymphs Cancelled Hairy Cells Cancelled Smudge Cells Cancelled Toxic Granulation Cancelled Toxic Vacuolation Cancelled Dohle Bodies Cancelled David Rods Cancelled Platelet Estimate Cancelled Hypogranular Platelets Cancelled Giant Platelets Cancelled Platelet Satelliting Cancelled RBC Morphology Cancelled Polychromasia Cancelled Hypochromasia Cancelled Poikilocytosis Cancelled Basophilic Stippling Cancelled Anisocytosis Cancelled Microcytosis Cancelled Macrocytosis Cancelled Spherocytes Cancelled Pappenheimer Bodies Cancelled Sickle Cells Cancelled Target Cells Cancelled Tear Drop Cells Cancelled Ovalocytes Cancelled Stomatocytes Cancelled [place] Bodies Cancelled Echinocytes Cancelled Acanthocytes (Spur) Cancelled Rouleaux Cancelled RBC Agglutinates Cancelled Schistocytes Cancelled Sezary Cell Cancelled Sodium (136-145) mmol/L Potassium (3.5-5.1) mmol/L Chloride (98-107) mmol/L Carbon Dioxide (21-32) mmol/L Anion Gap (3-11) BUN (6-23) mg/dl Creatinine (0.6-1.2) mg/dl Est Cr Clr Drug Dosing ml/min Est GFR ( Amer) ml/min Est GFR (Non-Af Amer) ml/min BUN/Creatinine Ratio (10-20) Glucose (70-99(Fasting)) mg/dl Calcium (8.6-10.3) mg/dl Magnesium (1.7-2.4) mg/dl TSH (0.300-4.500) uIu/ml Blood Parasites ID Cancelled
--- NOTE | 2023-03-23 21:47 | Discharge Summary ---
Date of Service March 23, 2023 Admission HPI Per Admitting Provider History obtained from patient, family, and records. Medical history significant for hyperlipidemia, LEXIE status post surgery, DM 2 diet controlled, hypothyroidism, GERD, fibromyalgia, migraine, chronic fatigue syndrome as per records, anxiety/mood disorder, IgA deficiency as per records, past tobacco abuse. Last confinement December 2014 for intractable headache. Few days history of achy RUQ pain radiating to the right flank with nausea, no vomiting, no fever, no chills. Patient denies chest pain, SOB. Patient brought by to the ER for evaluation. Medical History as above Surgical History : Tarsal tunnel release surgery, uvulopalatopharyngoplasty, breast reduction, sinus surgery, entropion surgery, oophorectomy, hernia repair Family History : Cholelithiasis, breast cancer, DM, autoimmune disease Personal/Social history : Past tobacco abuse, occasional EtOH intake, homemaker Admission Exam Per Admitting Provider GENERAL: Comfortable, pleasant, obese, no respiratory distress SKIN: Normal color, warm HEENT: [place] palpebral conjunctivae, no ptosis, dry buccal mucosa NECK : Supple, short neck, no tenderness CHEST : CTA, no tenderness HEART : RRR, no obvious murmurs ABDOMEN: Some distention, right upper quadrant tenderness EXTREMITIES : Minimal LE swelling, no LE tenderness, no other conspicuous deformities noted NEUROLOGIC : Coherent, no facial asymmetry, no other gross focality Principal Diagnosis Biliary colic/symptomatic cholelithiasis Discharge Exam General: Sitting comfortably in bed, not in distress, on room air HEENT: EOMI, JEFF, MMM Chest: Clear breath sounds bilaterally, no wheezes or crackles CVS: Regular rate and rhythm, normal heart sounds, no murmur Abdomen: Soft, abdominal incision site clean dry intact, expected mild postop tenderness, normal bowel sounds Neuro: Awake, alert, oriented, conversing well, non focal Extremities: No cyanosis, clubbing or edema Discharge Data Allergies Allergy/AdvReac Type Severity Reaction Status Date / Time amoxicillin Allergy Intermediate ITCHING Verified 03/20/23 22:41 azithromycin Allergy Intermediate itching Verified 03/20/23 22:41 [From Zithromax Z-Owen] gabapentin Allergy Intermediate HIVES Verified 03/20/23 22:41 Sulfa (Sulfonamide Allergy Intermediate Rash Verified 03/20/23 22:41 Antibiotics) Consultations 03/20/23 23:02 ED Decision to Admit Stat 03/21/23 03:32 Consult General Surgery Routine Procedures Performed Operation Date: 03/22/23 10:00 Actual Procedures p Laparoscopic Cholecystectomy(Not Applicable) - Al Stock MD Ordered Studies 03/20/23 21:40 US gallbladder Stat Laboratory Results WBC 10.50 K/ul (4.8-10.8) 03/23/23 03:05 RBC 4.24 M/uL (4.20-5.40) 03/23/23 03:05 Hgb 13.0 g/dl (12.0-16.0) 03/23/23 03:05 Hct 38.7 % (37.0-47.0) 03/23/23 03:05 MCV 91.3 fL (80.0-100.0) 03/23/23 03:05 MCH 30.7 pg (25.0-34.0) 03/23/23 03:05 MCHC 33.6 g/dL (32.0-36.0) 03/23/23 03:05 RDW Std Deviation 40.5 fL (36.4-46.3) 03/23/23 03:05 RDW Coeff of Eunice 12.1 % (11.5-14.5) 03/23/23 03:05 Plt Count 243 K/uL (130-400) 03/23/23 03:05 MPV 10.7 fL (9.4-12.4) 03/23/23 03:05 Immature Gran % (Auto) 0.5 % 03/23/23 03:05 Neut % (Auto) 90.4 % 03/23/23 03:05 Lymph % (Auto) 5.5 % 03/23/23 03:05 [place] % (Auto) 3.5 % 03/23/23 03:05 Eos % (Auto) 0.0 % 03/23/23 03:05 Baso % (Auto) 0.1 % 03/23/23 03:05 Neut # (Auto) 9.49 K/uL (1.40-6.50) H 03/23/23 03:05 Lymph # (Auto) 0.58 K/uL (1.2-3.4) L 03/23/23 03:05 [place] # (Auto) 0.37 K/uL (0.11-0.59) 03/23/23 03:05 Eos # (Auto) 0.00 K/uL (0-0.50) 03/23/23 03:05 Baso # (Auto) 0.01 K/uL (0-0.2) 03/23/23 03:05 Immature Gran # (Auto) 0.05 K/uL (0.01-0.20) 03/23/23 03:05 Absolute Nucleated RBC Cancelled 03/23/23 01:41 Nucleated RBC % (auto) Cancelled 03/23/23 01:41 Neutrophils % (Manual) Cancelled 03/23/23 01:41 Band Neutrophils % Cancelled 03/23/23 01:41 Lymphocytes % (Manual) Cancelled 03/23/23 01:41 Prolymphocyte % Cancelled 03/23/23 01:41 Reactive Lymphs % (Man) Cancelled 03/23/23 01:41 Monocytes % (Manual) Cancelled 03/23/23 01:41 Eosinophils % (Manual) Cancelled 03/23/23 01:41 Basophils % (Manual) Cancelled 03/23/23 01:41 Metamyelocytes % (Man) Cancelled 03/23/23 01:41 Myelocytes % (Man) Cancelled 03/23/23 01:41 Promyelocytes % (Man) Cancelled 03/23/23 01:41 Blast Cells % (Manual) Cancelled 03/23/23 01:41 Plasma Cell % (Manual) Cancelled 03/23/23 01:41 Other Cells % Cancelled 03/23/23 01:41 Nucleated RBC % Cancelled 03/23/23 01:41 Neutrophils # (Manual) Cancelled 03/23/23 01:41 Band Neutrophils # Cancelled 03/23/23 01:41 Total Absolute Neuts Cancelled 03/23/23 01:41 Lymphocytes # (Manual) Cancelled 03/23/23 01:41 Prolymphocyte # Cancelled 03/23/23 01:41 Reactive Lymphs # Cancelled 03/23/23 01:41 Total Abs Lymphocytes Cancelled 03/23/23 01:41 Monocytes # (Manual) Cancelled 03/23/23 01:41 Eosinophils # (Manual) Cancelled 03/23/23 01:41 Basophils # (Manual) Cancelled 03/23/23 01:41 Metamyelocytes # (Man) Cancelled 03/23/23 01:41 Myelocytes # (Manual) Cancelled 03/23/23 01:41 Promyelocytes # (Man) Cancelled 03/23/23 01:41 Blast Cells # (Man) Cancelled 03/23/23 01:41 Plasma Cell # (Manual) Cancelled 03/23/23 01:41 Other Cells # Cancelled 03/23/23 01:41 Nucleated RBCs # (Man) Cancelled 03/23/23 01:41 Hypersegmented Neuts Cancelled 03/23/23 01:41 Hyposegmented Neuts Cancelled 03/23/23 01:41 Hypogranular Neuts Cancelled 03/23/23 01:41 Large Granular Lymphs Cancelled 03/23/23 01:41 # Lrg Granular Lymphs Cancelled 03/23/23 01:41 Hairy Cells Cancelled 03/23/23 01:41 Smudge Cells Cancelled 03/23/23 01:41 Toxic Granulation Cancelled 03/23/23 01:41 Toxic Vacuolation Cancelled 03/23/23 01:41 Dohle Bodies Cancelled 03/23/23 01:41 David Rods Cancelled 03/23/23 01:41 Platelet Estimate Cancelled 03/23/23 01:41 Hypogranular Platelets Cancelled 03/23/23 01:41 Giant Platelets Cancelled 03/23/23 01:41 Platelet Satelliting Cancelled 03/23/23 01:41 RBC Morphology Cancelled 03/23/23 01:41 Polychromasia Cancelled 03/23/23 01:41 Hypochromasia Cancelled 03/23/23 01:41 Poikilocytosis Cancelled 03/23/23 01:41 Basophilic Stippling Cancelled 03/23/23 01:41 Anisocytosis Cancelled 03/23/23 01:41 Microcytosis Cancelled 03/23/23 01:41 Macrocytosis Cancelled 03/23/23 01:41 Spherocytes Cancelled 03/23/23 01:41 Pappenheimer Bodies Cancelled 03/23/23 01:41 Sickle Cells Cancelled 03/23/23 01:41 Target Cells Cancelled 03/23/23 01:41 Tear Drop Cells Cancelled 03/23/23 01:41 Ovalocytes Cancelled 03/23/23 01:41 Stomatocytes Cancelled 03/23/23 01:[address] [place] Bodies Cancelled 03/23/23 01:41 Echinocytes Cancelled 03/23/23 01:41 Acanthocytes (Spur) Cancelled 03/23/23 01:41 Rouleaux Cancelled 03/23/23 01:41 RBC Agglutinates Cancelled 03/23/23 01:41 Schistocytes Cancelled 03/23/23 01:41 Sezary Cell Cancelled 03/23/23 01:41 Sodium 137 mmol/L (136-145) 03/23/23 01:41 Potassium 4.5 mmol/L (3.5-5.1) 03/23/23 01:41 Chloride 105 mmol/L (98-107) 03/23/23 01:41 Carbon Dioxide 26 mmol/L (21-32) 03/23/23 01:41 Anion Gap 6 (3-11) 03/23/23 01:41 BUN 7 mg/dl (6-23) 03/23/23 01:41 Creatinine 0.76 mg/dl (0.6-1.2) 03/23/23 01:41 Est Cr Clr Drug Dosing 100.0 ml/min 03/23/23 01:41 Est GFR ( Amer) 103.8 ml/min 03/23/23 01:41 Est GFR (Non-Af Amer) 89.6 ml/min 03/23/23 01:41 BUN/Creatinine Ratio 9.2 (10-20) L 03/23/23 01:41 Glucose 132 mg/dl (70-99(Fasting)) H 03/23/23 01:41 POC Glucose 76 mg/dl (70-99) 03/21/23 12:06 Estimat Average Glucose 117 mg/dl 03/21/23 05:44 Hemoglobin A1c 5.7 % (4.5-5.6) H 03/21/23 05:44 Calcium 8.8 mg/dl (8.6-10.3) 03/23/23 01:41 Phosphorus 3.2 mg/dl (2.5-4.9) 03/22/23 06:32 Magnesium 1.9 mg/dl (1.7-2.4) 03/23/23 01:41 Total Bilirubin 0.4 mg/dl (0.2-1.0) 03/22/23 06:32 AST 14 U/L (13-39) 03/22/23 06:32 ALT 8 U/L (7-52) 03/22/23 06:32 Alkaline Phosphatase 51 U/L (34-104) 03/22/23 06:32 Troponin I High Sens 2.8 pg/ml (0-14) 03/20/23 21:47 Total Protein 6.5 gm/dl (6.0-8.3) 03/22/23 06:32 Albumin 3.9 gm/dl (3.4-5.0) 03/22/23 06:32 Globulin 2.6 gm/dl (2.5-4.0) 03/22/23 06:32 Albumin/Globulin Ratio 1.5 (0.9-2) 03/22/23 06:32 Lipase 40 U/L (11-82) 03/20/23 21:47 TSH 0.447 uIu/ml (0.300-4.500) 03/23/23 01:41 HCG, Qual Negative (Negative) 03/20/23 21:47 Urine Color Yellow 03/20/23 21:40 Urine Appearance Clear (Clear) 03/20/23 21:40 Urine pH 7.0 (4.5-7.5) 03/20/23 21:40 Ur Specific [place] 1.011 (1.000-1.030) 03/20/23 21:40 Urine Protein Negative (Negative) 03/20/23 21:40 Urine Glucose (UA) Negative (Negative) 03/20/23 21:40 Urine Ketones Negative (Negative) 03/20/23 21:40 Urine Blood Negative (Negative) 03/20/23 21:40 Urine Nitrite Negative (Negative) 03/20/23 21:40 Urine Bilirubin Negative (Negative) 03/20/23 21:40 Urine Urobilinogen Negative (Negative) 03/20/23 21:40 Ur Leukocyte Esterase Negative (Negative) 03/20/23 21:40 SARS-CoV-2, RNA, NAAT NEGATIVE (NEGATIVE) 03/20/23 23:09 Blood Parasites ID Cancelled 03/23/23 01:41 Impressions Gallbladder Ultrasound 03/20/23 21:40 Exam(s): US GALLBLADDER EXAM: US Abdomen Limited, Gallbladder CLINICAL HISTORY: Reason for exam: ruq pain. TECHNIQUE: Real-time ultrasound of the right upper quadrant with image documentation. COMPARISON: 09/29/2018. FINDINGS: Limitations: Exam is limited due to gas artifact in the bowel. Liver: The liver measures 16.5 cm. Gallbladder: Ruiz sign could not be assessed due to prior administration of medication. The gallbladder wall measures 1.9 mm. Normal distention of the gallbladder with a stone measuring 1.5 x 1.7 x 1. 4 cm. Common bile duct: The common bile duct measures 3 mm. No stones. No dilation. Pancreas: Unremarkable as visualized. Right kidney: The right kidney measures 11.5 cm. IMPRESSION: 1. Gallstone measuring maximum 1.7 cm with no distinct signs of acute cholecystitis. 2. Remainder of the right upper quadrant ultrasound unremarkable. Electronically signed by: Sara Marsh MD 03/20/23 22:52 PM Hospital Course (1) Biliary colic: Patient was admitted for biliary colic/symptomatic cholelithiasis. Gallbladder ultrasound shows maximum 1.7 cm with no distinct signs of acute cholecystitis. No fever, leukocytosis or elevated LFTs. Seen by surgery and underwent uneventful laparoscopic cholecystectomy yesterday- noted to have acute cholecystitis during surgery. Postoperative course remained unremarkable. Tolerating diet well without nausea vomiting. Pain is well controlled. Ambulating without issues. Cleared by surgery for discharge home with outpatient follow-up in 2 weeks. Pain medications and discharge instructions pr ovided by surgery. No further indication for antibiotics per surgery. Patient is comfortable and stable for discharge home. Total Time Total Time Spent Total Time Spent (In Minutes): 35 Discharge Plan Discharge Items Patient Disposition: Home - Self-Care Reason For Visit: ABD PAIN Discharge Diagnosis: Biliary colic, cholelithiasis, Acute choleystitis Condition on Discharge: Good Activity: Per Instructions section Non-emergency contact: Surgeon Call non-emergency contact if: you have any medication questions, your pain is worsening, your pain is concerning for you, you have a fever, your temperature is above 101, your wound has increased redness, your wound has increased drainage and your wound pain has increased Follow-up/Referrals: Blanca Neves PA-C [Physician Power Barker Operator] - 04/05/23 10:00 am Belle Parekh MD [Primary Care Provider] - (Date & Time 03/28/2023 11:00 AM Provider Belle Parekh MD Department [facility] ) Diet: Regular Addtl Attending Provider Instructions: Please see the instructions below Addtl Bus Transportation Manager Provider Instructions: Post-Surgical ~Discharge Instructions Activity Recommendations: - lifting limitation: (20 pounds for 3-4 weeks), - exercise/sex/sports limit: (nonstrenuous for 2 weeks), - driving or machine use limit: (none for 1 week or until pain free), - Shower/bathe limit: (may shower beginning Tuesday) Diet: - Resume previous diet SPECIAL CARE INSTRUCTIONS: - Keep dressings dry for 3 days, may completely shower on Tuesday morning. Sponge bath around incisions and wash hair in meantime. On Tuesday, remove outer dressings and shower. Let water run over area and pat dry. - Leave steri strips on for one week and then remove. They may fall off before that is okay. - Call the surgeon's office with any questions or concerns - - (ex. temperature higher than 101 degrees F, excessive bleeding or pain). MEDICATIONS: - Resume previous medications unless instructed otherwise by your surgeon. - May alternate extra strength Tylenol and Ibuprofen as needed for mild to moderate pain -650 mg Tylenol every 6 hours as needed - Ibuprofen 600 mg every 6 hours as needed (take with food) - Tramadol 1 every 6 hours, as needed for moderate to severe pain FOLLOW UP VISIT: - If not already scheduled, please call the office to schedule a one-two week follow-up appointment. Office number Pending Studies at Discharge: Yes (gallbladder pathology, will be reviewed at postop visit) Stand-Alone Forms: My [facility] MD [employer], Smoking Cessation Medications and DC Order Prescriptions: New tramadol 50 mg tablet 50 mg PO Q6H PRN (Reason: pain) Qty: 10 0RF Continued [place]ovy Syringe 225 mg/1.5 mL syringe 225 mg subcut .[id number] Rx Instructions: DUE IN MARCH 2023 folic acid 1 mg Tablet 1 mg PO DAILY cholecalciferol (vitamin D3) 2,000 unit Tablet 2,000 unit PO DAILY [place] Thyroid 60 mg Tablet 60 mg PO DAILY oxybutynin chloride 15 mg tablet extended release 24hr 15 mg PO QAM tizanidine 4 mg tablet 4 mg PO HS Rx Instructions: MAY INCREASE WEEKLY BY 2 MG IF NEEDED TO MAX DOSE OF 8 MG. omeprazole 40 mg capsule,delayed release(DR/EC) 40 mg PO QAM tramadol 50 mg tablet 50 mg PO HS PRN (Reason: RESTLESS LEGS) lamotrigine 25 mg tablet 0 mg PO DIRECTED lorazepam 0.5 mg tablet 0.5 mg PO TID PRN (Reason: Anxiety) CombiPatch 0.05-0.14 mg/24 hr patch semiweekly 1 patch transdermal 2XWK Nurtec ODT 75 mg tablet,disintegrating 75 mg PO DIRECTED PRN (Reason: Migraine Headache) Discharge Orders: Discharge Order (Routine); Ordered 03/23/23 Ordered By: Sylvain Hodges Admission Data Admit Date/Time: 03/21/23 02:06 Attending Provider: Sylvain Hodges Admit Provider: Mati Chaves Primary Care Provider: Belle Parekh Other Providers: Mati Chaves ; Al Stock Other Interventions: Discharge Summary Assessment (RN) Last Done: 03/23/23 11:41
== END 2023-03-23 14:00 | disposition home or self-care (01) | DRG 419 ==
LOC: ED 21:12 → SUATTDRO 03-21 02:06 → 3W 03-21 02:06